=== PATIENT | female | born 1940 | race Caucasian/White ===

== ENCOUNTER 2022-12-21 11:44 | Outpatient (CLI) | payer MEDICARE, SELFPAY ==
[2022-12-21] MEDS: TETRACAINE 0.5% OPHTH 1 DROP EYE-RIGHT ×3 (11:55→12:44)
[2022-12-21] MEDS: BRIMONIDINE TARTRATE 0.2% OPHTH 1 DROP EYE-RIGHT ×2 (11:55→12:50)
[2022-12-21 11:57] VITALS: BP 126/75; PULSE 73; RESP 16; TEMP 36.2; O2SAT 96
--- NOTE | 2022-12-21 13:14 | W.PM.OPTPROC ---
Procedure Note Date of procedure: 12/21/22 Will [facility] bill your pro fee for this procedure?: Yes Procedure Description: SURGEON: Erin Bhakta MD PREOPERATIVE DIAGNOSIS: Posterior capsular opacity, right eye POSTOPERATIVE DIAGNOSIS: Posterior capsular opacity, right eye PROCEDURE: YAG laser capsulotomy, right eye ANESTHESIA: Topical. ESTIMATED BLOOD LOSS: None PATHOLOGY SPECIMEN: None COMPLICATIONS: None INDICATIONS: See consult note for details. The risks, benefits and alternatives of the procedure were explained to the patient, who elected to proceed and signed informed consent to do so. PROCEDURE: The patient was brought to the pre-holding area where the right eye was identified as the operative eye. I placed my initials above this eye. The patient received 2 sets of 1 drop of 0.5% tetracaine and 1 drop of 1% tropicamide. They also received 1 drop of 0.2% brimonidine. They received 1 drop of 0.5% tetracaine immediately prior to bringing them back for the procedure. The patient was then brought to the procedure room where the right eye was again identified as the operative eye. A YAG Walt capsulotomy lens was placed on the eye. The laser was administered using a total number of 13 shots with an energy of 2.4 mJ per shot for a total energy of 31 mJ. The patient tolerated the procedure well. DISPOSITION: The patient was taken back to the pre-holding area and given 1 drop of 0.2% brimonidine in the right eye. They were discharged to home in stable condition. The patient was instructed to call me or go to the emergency department with any sudden change, including dramatic loss of vision, severe pain in the eye or eyebrow region, nausea, or vomiting. The patient was instructed to use the 0.2% brimonidine 1 drop 2 times a day in the right eye for 1 week. The patient will follow up in the clinic in 1-2 weeks.
== END 2022-12-21 13:01 | disposition home or self-care (01) ==
LOC: EYE PRC 11:46
PROVIDERS: Visit Provider Ophthalmology
DX: H26.9 Unspecified cataract (principal)
CPT/HCPCS: 66821; A9270

== ENCOUNTER 2023-01-04 10:48 | Outpatient (CLI) | payer MEDICARE, SELFPAY ==
[2023-01-04 10:55] VITALS: BP 127/74; PULSE 70; RESP 16; O2SAT 97
[2023-01-04] MEDS: TETRACAINE 0.5% OPHTH 1 DROP EYE-LEFT ×3 (10:58→11:12)
[2023-01-04] MEDS: BRIMONIDINE TARTRATE 0.2% OPHTH 1 DROP EYE-LEFT ×2 (10:59→11:41)
--- NOTE | 2023-01-04 11:38 | W.PM.OPTPROC ---
Procedure Note Date of procedure: 01/04/23 Will [facility] bill your pro fee for this procedure?: Yes Procedure Description: SURGEON: Erin Bhakta MD PREOPERATIVE DIAGNOSIS: Posterior capsular opacity, left eye POSTOPERATIVE DIAGNOSIS: Posterior capsular opacity, left eye PROCEDURE: YAG laser capsulotomy, left eye ANESTHESIA: Topical. ESTIMATED BLOOD LOSS: None PATHOLOGY SPECIMEN: None COMPLICATIONS: None INDICATIONS: See consult note for details. The risks, benefits and alternatives of the procedure were explained to the patient, who elected to proceed and signed informed consent to do so. PROCEDURE: The patient was brought to the pre-holding area where the left eye was identified as the operative eye. I placed my initials above this eye. The patient received 2 sets of 1 drop of 0.5% tetracaine and 1 drop of 1% tropicamide. They also received 1 drop of 0.2% brimonidine. They received 1 drop of 0.5% tetracaine immediately prior to bringing them back for the procedure. The patient was then brought to the procedure room where the left eye was again identified as the operative eye. A YAG Walt capsulotomy lens was placed on the eye. The laser was administered using a total number of 22 shots with an energy of 2.4 mJ per shot for a total energy of 53 mJ. The patient tolerated the procedure well. DISPOSITION: The patient was taken back to the pre-holding area and given 1 drop of 0.2% brimonidine in the left eye. They were discharged to home in stable condition. The patient was instructed to call me or go to the emergency department with any sudden change, including dramatic loss of vision, severe pain in the eye or eyebrow region, nausea, or vomiting. The patient was instructed to use the 0.2% brimonidine 1 drop 2 times a day in the left eye for 1 week. The patient will follow up in the clinic in 1-2 weeks
== END 2023-01-04 11:41 | disposition home or self-care (01) ==
LOC: EYE PRC 10:48
PROVIDERS: Visit Provider Ophthalmology
DX: H26.9 Unspecified cataract (principal)
CPT/HCPCS: 66821; A9270

== ENCOUNTER 2025-01-17 11:24 | Outpatient (CLI) | payer MEDICARE, SELFPAY | END 2025-01-17 11:25 | disposition home or self-care (01) | LOC: AMB 01-22 18:05 | PROVIDERS: Visit Provider Internal Medicine | DX: R07.89 Other chest pain (principal) | CPT/HCPCS: A0425; A0427 ==

== ENCOUNTER 2025-01-17 12:05 | Emergency (ER) | payer MEDICARE, SELFPAY ==
--- OUTSIDE RECORDS SUMMARY | 2024-12-05 12:40 | XMS_ITS | Encounter Summary ---
Author Organization [facility] Address [address] [place] [address] Care Team Providers Care Public Health Nurse Name Role Phone Radha Ospina M.D. Primary Care Provider [phone] Reason for Visit * Reason Comments Immunizations Encounter Details Date Type Department Care Team (Latest Contact Info) Description 12/05/2024 1:40 PM CDT Clinical Support Department of Family Medicine, [facility], in [address] [phone] Melly Keane, RJaciN. [address] [place] [phone] Discharge Disposition: Home or Self Care Social History Tobacco Use Types Packs/Day Years Used Date Smoking Tobacco: Former Cigarettes 2 44.5 0 08/25/1956 - 03/13/2001 Passive Smoke Exposure: Past Smokeless Tobacco: Never Alcohol Use Standard Drinks/Week Comments Yes 5 (1 standard drink = 0.6 oz pur e alcohol) [facility] Utilities Answer Date Recorded In the past 12 months has e electric, gas, oil, or water company threatened to shut off services in your home? No 12/27/2023 Humiliation, Afraid, Rape, and Kick questionnair e Answer Date Recorded Within the last year, have y ou been afraid of your partner or ex-partner? No 08/12/2024 Within the last year, have y ou been humiliated or emotionally abused in other ways by your partner or ex-partner? No Within the last year, have y ou been kicked, hit, slapped, or otherwise physically hurt by your partner or ex-partner? No 08/12/2024 Within the last year, have y ou been raped or forced to have any kind of sexual activity by your partner or ex-partner? No 08/12/2024 Hunger Vital Sign Answer Date Recorded Within the past 12 months, y ou worried that your food would run out before you got the money to buy more. Never true 12/27/19 Within the past 12 months, t he food you bought just didn't last and you didn't have money to get more. Never true 12/27/2023 PRAPARE - Transportation Answer Date Re corded In the past 12 months, has l ack of transportation kept you from medical appointments or from getting medications? No 12/11 In the past 12 months, has l ack of transportation kept you from meetings, work, or from getting things needed for daily living? No 12/27/2023 Depression Answer Date Recor ded PHQ-9 Total Score (max 27) 0 10/16 Housing Stability Answer Date Recorded What is your living situation today? I have a [facility] place to live 12/27/2023 Education Answer Date Recorded What is the highest level of school you have completed or the highest degree you have received? Bachelor's degree (e.g., BA, AB, BS) 01/04/2019 Comments No Sex and Gender Information Value Date Recorded Sex Assigned at Female 11/03/2021 11:16 AM CDT Legal Sex Female 11:50 PM VIBRATOR EQUIPMENT TESTER Gender Identity Female 04/25/2020 8:38 AM VIBRATOR EQUIPMENT TESTER Sexual Orientation Straight 04/25/2020 8: 38 AM VIBRATOR EQUIPMENT TESTER documented as of this encounter Plan of Treatment Not on file documented as of this encounter Visit Diagnoses Not on filedocumented in this encounter Additional Health Concerns Assessment Noted Time PHQ-9 Depression Total Score: 0 10/17/19 25 1:28 PM CDT documented as of this encounter Care Teams Public Health Nurse Relationship Specialty Start Date End Date Radha Ospina M.D. [address] [place] [phone] PCP - General Family Medicine 11/26/07 documented as of this encounter
--- OUTSIDE RECORDS SUMMARY | 2024-12-10 14:30 | XMS_ITS | Encounter Summary ---
Author Organization [facility] Address [address] [place] [id number] Care Team Providers Care Waste And Batting Waste Chopper Name Role Phone Radha Ospina M.D. Primary Care Provider [phone] Encounter Details Date Type Department Care Team (Latest Contact Info) Description 12/10/2024 3:30 PM CDT Clinical Communication Virtual Review in [place], [place] [address] [place] [phone] Social History Tobacco Use Types Packs/Day Years Used Date Smoking Tobacco: Former Cigarettes 2 44.5 0 08/25/1956 - 03/13/2001 Passive Smoke Exposure: Past Smokeless Tobacco: Never Alcohol Use Standard Drinks/Week Comments Yes 5 (1 standard drink = 0.6 oz pur e alcohol) [facility] Utilities Answer Date Recorded In the [...] your living situation today? I have a [facility] place to live 12/27/2023 Education Answer Date Recorded What is the highest level of school you have completed or the highest degree you have received? Bachelor's degree (e.g., BA, AB, BS) 01/04/2019 Comments No Sex and Gender Information Value Date Recorded Sex Assigned at Female 11/03/2021 11:16 AM CDT Legal Sex Female 11:50 PM LIGHTING FIXTURE INSTALLER Gender Identity Female 04/25/2020 8:38 AM LIGHTING FIXTURE INSTALLER Sexual Orientation Straight 04/25/2020 8: 38 AM LIGHTING FIXTURE INSTALLER documented as of this encounter Plan of Treatment Not on file documented as of this encounter Visit Diagnoses Not on filedocumented in this encounter Additional Health Concerns Assessment Noted Time PHQ-9 Depression Total Score: 0 10/17/19 25 1:28 PM CDT documented as of this encounter Care Teams Waste And Batting Waste Chopper Relationship Specialty Start Date End Date Radha Ospina M.D. [address] [place] [phone] PCP - General Family Medicine 11/26/07 documented as of this encounter
--- OUTSIDE RECORDS SUMMARY | 2024-12-10 23:00 | XMS_ITS | Encounter Summary ---
Author Organization [facility] Address [address] [place] [address] Care Team Providers Care Alumnae Secretary Name Role Phone Radha Ospina M.D. Primary Care Provider [phone] Encounter Details Date Type Department Care Team (Late st Contact Info) Description 12/11/2024 Ancillary Procedure Department of Ophthalmology Social History Tobacco Use Types Packs/Day Years Used Date Smoking Tobacco: Former Cigarettes 2 44.5 0 08/25/1956 - 03/13/2001 Passive Smoke Exposure: Past Smokeless Tobacco: Never Alcohol Use Standard Drinks/Week Comments Yes 5 (1 standard drink = 0.6 oz pur e alcohol) [facility] Utilities Answer Date Recorded In the past 12 months has [employer], gas, oil, or water [employer] threatened to shut off services in your [...] money to buy more. Never true 12/27/19 24 Within the past 12 months, t he [...] your living situation today? I have a [facility] place to live 12/27/2023 Education Answer Date Recorded What is the highest level of school you have completed or the highest degree you have received? 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 Gender Identity Female 04/25/2020 8:38 AM SOLAR ENERGY TECHNICIAN Sexual Orientation Straight 04/25/2020 8: 38 AM SOLAR ENERGY TECHNICIAN documented as of this encounter Plan of Treatment Not on file documented as of this encounter Procedures Procedure Name Priority Date/Time Associated Diagnosis Comments OPHTHALMOLOGY IMAGE EXAM Routine 12/11/2024 12:00 AM CDT documented in this encounter Results * Eyes External-Ophthalmology Image Exam (12/11/2024 12:00 AM CDT) Narrative [facility] - 12/11/2024 5:35 PM CDT This order has been created and auto-finalized to support the import of images acquired without order. The clinical documentation to support these images can be found on the encounter that produced images. us Provider Not In System IMG NON RAD IMAGING PROCE DURES Final Result [facility] NA documented in this encounter Visit Diagnoses Not on filedocumented in this encounter Additional Health Concerns Assessment Noted Time PHQ-9 Depression Total Score: 0 10/17/19 25 1:28 PM CDT documented as of this encounter Care Teams Alumnae Secretary Relationship Specialty Start Date End Date Radha Ospina M.D. [address] [place] [phone] PCP - General Family Medicine 11/26/07 documented as of this encounter
--- OUTSIDE RECORDS SUMMARY | 2024-12-11 10:00 | XMS_ITS | Encounter Summary ---
Author Organization [facility] Address [address] [place] [address] Care Team Providers Care Renal Social Worker Name Role Phone Radha Ospina M.D. Primary Care Provider [phone] Reason for Referral * Outpatient (Routine) - Authorized Specialty Diagnoses / Procedures Referred By Joseline fry Referred To Contact Ophthalmology Elda [place] M.D. [address] [place] [address] Phone: tel: fax: [facility] Referral ID Status Reason Start Date Expiration Date V isits Requested Visits Authorized [id number] Authorized 12/11/2024 06/12/2026 1 1 Scheduling Instructions Please schedule a 6 month return visit to check for DARLEEN symptoms. Reason for Visit * Reason Comments optical migraines Headache * Appointment Request (Routine) - Closed Specialty Diagnoses / Procedures Referred By Joseline fry Referred To Contact Ophthalmology Diagnoses Migraine Headache Ophthalmic Retraction Eyelid Erin Bhakta M.D. [address] [address] Phone: tel: fax: Referral ID Status Reason Start Date Expiration Date Visits Re quested Visits Authorized [id number] Closed 07/24/2024 10/24/2025 1 1 Encounter Details Date Type Department Care Team (Latest Contact Info) Description 12/11/2024 11:00 AM CDT Comprehensive Visit Department of Ophthalmology in [place], [place] [address] [place] [address] Elda [place] M.D. [address] [place] [phone] Eyelid Retraction Left Upper Eyelid (Primary Dx) Social History Tobacco Use Types Packs/Day Years Used Date Smoking Tobacco: Former Cigarettes 2 44.5 0 08/25/1956 - 03/13/2001 Passive Smoke Exposure: Past Smokeless Tobacco: Never Alcohol Use Standard Drinks/Week Comments Yes 5 (1 standard drink = 0.6 oz pur e alcohol) [facility] Utilities Answer Date Recorded In the past 12 months has e [employer], gas, oil, or water [employer] threatened to shut off services in your [...] your living situation today? I have a [facility] place to live 12/27/2023 Education Answer Date Recorded What is the highest level of school you have completed or the highest degree you have received? Bachelor's degree (e.g., BA, AB, BS) 01/04/2019 Comments No Sex and Gender Information Value Date Recorded Sex Assigned at Female 11/03/2021 11:16 AM CDT Legal Sex Female 11:50 PM CERTIFIED ENERGY MANAGER Gender Identity Female 04/25/2020 8:38 AM CERTIFIED ENERGY MANAGER Sexual Orientation Straight 04/25/2020 8: 38 AM CERTIFIED ENERGY MANAGER documented as of this encounter Progress Notes * Elda [place] M.D. - 12/11/2024 11:00 AM CDT Yoselyn Riddle was seen today for possible thyroid eye disease evaluation. #1 Eyelid Retraction Left Upper Eyelid Mrs. Riddle is an 84-year-old female with a history of migraine headache with aura and pseudophakia referred from Dr. Bhakta at the [facility] for evaluation of possible thyroid eye disease. In July 2024 during a routine visit Dr. Bhakta noted possible upper eyelid retraction. She therefore referred the patient for baseline thyroid labs and a CT scan. The patient has never had symptoms of hyperthyroidism such as hot flashes or a racing heart, and she has never had issues with double vision. The TSH in 08/2024 was normal, and the CT scan obtained that month showed (per the radiologist'sreport) symmetrical thickening of the bilateral medial rectus and inferior rectus muscles. The patie nt was thus referred to us for evaluation of possible thyroid eye disease. On examination the patient has excellent visual acuity in both eyes with normal intra-ocular pressures and full color vision. Her pupils are equally round and reactive to light and accommodation withno afferent pupillary defect. She has full motility in both eyes. She does have significant bilateral upper eyelid dermatochalasis with hooding as well as prominent fat pads. Her MRD 1 is 5 on the right and 5.5 on the left, which is suggestive of very subtle eyelid retraction of the left upper eyelid. She also has mild lid lag on the left side. Abhishek exophthalmometry shows 2 mm of relative proptosis of the left eye. We reviewed the CT scan obtained in 08/2024 and feel that the medial rectus and inferior rectus muscle enlargement noted in the radiologist's report is subtle and may be normal. The slight left upper eyelid retraction may be a compensatory mechanism to her significant dermatochalasis with hooding. However when considered in the context of the mild lid lag and 2 mm of proptosis, it is not unreasonable to work the patient up for early thyroid eye disease. We will obtain TSI and TRAb levels today. We will see the patient back in 6 months and will also obtain TSI, TRAb, and TSH at that time. We emphasized to the patient that should she begin to have any symptoms of hyperthyroidism such as hot flashes or racing heart, she should inform her primary physician immediately. Regarding the dermatochalasis, this appears to be visually significant. She is considering having surgery with Dr. Bhakta. I do not see any contraindication to proceeding with surgery even as we follow along for possible developing thyroid eye disease. documented in this encounter Plan of Treatment Scheduled Orders Name Type Priority Associated Diagnoses Orde r Schedule Thyroid-Stimulating Immunoglobulin (TSI) Lab Routine Eyelid Retraction Left Upper Eyelid Expected: 06/11/2025, Expires: 03/13/2026 Thyrotropin Receptor Antibody Lab Routine Eyelid Retraction Left Upper Eyelid Expected: 06/11/2025 (Approximate), Expires: 03/13/2026 S-TSH (Thyroid-Stimulating Hormone - Sensitive) Lab Routine Eyelid Retraction Left Upper Eyelid Expected: 06/11/2025, Expires: 03/13/2026 Scheduled Referrals Name Type Priority Associated Diagnoses Order Schedule Ophthalmology office visit (clinic): Self; Oculoplastics Outpatient Referral Routine Expected: 06/11/2025, Expires: 03/13/2026 documented as of this encounter Results * Thyroid-Stimulating Immunoglobulin (TSI) (12/11/2024 11:57 AM CDT) Pathologist [facility] Thyroid-Stimula ting Immunoglob, S <1.0 <=1.3 TSI index 12/19/2024 6:25 PM CDT [facility] Blood (Blood, Venous) 12/11/2024 11:57 AM CDT 12/12/2024 8:23 AM CDT Elda [place] M.D. LAB BLOOD ADD-ON Final Result Performing Organization Address [facility] Co de Phone Number [facility] [address] [place] [address] [place] [phone] [place] [address] [place] [address] * Thyrotropin Receptor Antibody (12/11/2024 11:57 AM CDT) [facility] Thyrotropin Receptor Ab, S <1.10 0.00 - 1.75 IU/L 12/11/2024 7:13 PM CDT [facility] Comment: ----ADDITIONAL INFORMATION---- At a decision limit of 1.75 IU/L, this assay has 97% sensitivity and 99% specificity for detection of Graves' disease. In healthy individuals and in patients with thyroid disease without diagnosis of Graves' disease, the upper limit of anti-TSHR values are 1.22 IU/L and 1.58 IU/L, respectively (97.5th percentiles). Blood (Blood, Venous) 12/11/2024 11:57 AM CDT 12/11/2024 6:28 PM CDT Elda [place] M.D. LAB BLOOD ADD-ON Final Result Performing Organization Address [facility] Co de Phone Number [facility] [address] [place] [address] [facility] [address] [place] [address] documented in this encounter Visit Diagnoses Diagnosis Eyelid Retraction Left Upper Eyelid- Primary documented in this encounter Additional Health Concerns Assessment Noted Time PHQ-9 Depression Total Score: 0 10/17/19 25 1:28 PM CDT documented as of this encounter Care Teams Renal Social Worker Relationship Specialty Start Date End Date Radha Ospina M.D. [address] [place] [phone] PCP - General Family Medicine 11/26/07 documented as of this encounter
--- OUTSIDE RECORDS SUMMARY | 2024-12-11 10:49 | XMS_ITS | Encounter Summary ---
Author Organization [facility] Address [address] [place] [address] Care Team Providers Care Consumer Affairs Manager Name Role Phone Radha Ospina M.D. Primary Care Provider +1 [phone] Encounter Details Date Type Department Care Team (Late st Contact Info) Description 12/11/2024 11:49 AM CDT - 12/11/2024 11:59 PM CDT Hospital Encounter Department of Laboratory Medicine and Pathology, [facility], in [place], [place] [address] [place] [address] Elda Hawkins M.D. [address] [place] [phone] Eyelid Retraction Left Upper Eyelid Discharge Disposition: Home or Self Care Social History Tobacco Use Types Packs/Day Years Used Date Smoking Tobacco: Former Cigarettes 2 44.5 0 08/25/1956 - 03/13/2001 Passive Smoke Exposure: Past Smokeless Tobacco: Never Alcohol Use Standard Drinks/Week Comments Yes 5 (1 standard drink = 0.6 oz pur e alcohol) [facility] Utilities Answer Date Recorded In the past 12 months has [employer] electric, gas, oil, or water company threatened [...] your living situation today? I have a [facility] place to live 12/27/2023 Education Answer Date Recorded What is the highest level of school you have completed or the highest degree you have received? Bachelor's degree (e.g., BA, AB, BS) 01/04/2019 Comments No Sex and Gender Information Value Date Recorded Sex Assigned at Female 11/03/2021 11:16 AM CDT Legal Sex Female 11:50 PM BIT WELDER Gender Identity Female 04/25/2020 8:38 AM BIT WELDER Sexual Orientation Straight 04/25/2020 8: 38 AM BIT WELDER documented as of this encounter Medications at Time of Discharge acetaminophen (for_TYLENOL) 500 mg tablet Take 2 tablets by mouth every 6 (six) hours as needed. Pain 09/11/2012 amLODIPine (Norvasc) 5 mg tablet TAKE 1 TABLET(5 MG) BY MOUTH DAILY 90 tablet 3 11/20/2024 ascorbic acid, vitamin C, (VITAMIN C) 500 mg tablet Take 1 tablet by mouth daily. 09/24/[address] tablet Take 81 mg by mouth daily. cetirizine (ZyrTEC) 10 mg tablet Take 10 mg by mouth daily as needed for allergies. 10/03/2024 clobetasoL (Temovate) 0.05 % ointment Apply 1 Application topically 2 (two) times a day. Apply 1 application topically 2 (two) times a day. Use 3 times a week 30 g 11 01/02/2024 EPINEPHrine 0.3 mg/0.3 mL injection syringe as needed. 11/08/2022 fexofenadine HCl (PRISCILLA ALLERGY ORAL) Take 1 tablet by mouth daily. losartan (Cozaar) 100 mg tablet Take 1 tablet (100 mg total) by mouth daily. 30 tablet 11 10/16/2024 multivitamin tablet Take 1 tablet by mouth daily. 09/24/2012 rosuvastatin (Crestor) 5 mg tablet TAKE 1 TABLET(5 MG) BY MOUTH DAILY 90 tablet 3 10/11/2024 hydroCHLOROthiaz almaz (HydroDiuril) 25 mg tablet TAKE 1/2 TABLET(12.5 MG) BY MOUTH DAILY 45 tablet 3 01/08/2024 5 documented as of this encounter Plan of Treatment Not on file documented as of this encounter Procedures Procedure Name Priority Date/Time Associated Diagnosis Comments THYROID-STIMULATING IMMUNOGLOBULIN (TSI), S Routine 12/11/2024 11:57 AM CDT Eyelid Retraction Left Upper Eyelid THYROTROPIN RECEPTOR AB, S Routine 12/11/2024 11:57 AM CDT Eyelid Retraction Left Upper Eyelid documented in this encounter Results * Thyroid-Stimulating Immunoglobulin (TSI) (12/11/2024 11:57 AM CDT) Thyroid-Stimula ting Immunoglob, S <1.0 <=1.3 TSI index 12/19/2024 6:25 PM CDT [facility] Blood (Blood, Venous) 12/11/2024 11:57 AM CDT 12/12/2024 8:23 AM CDT Elda Hawkins M.D. LAB BLOOD ADD-ON Final Result Performing Organization Address [facility] de Phone Number [facility] [address] [place] [address] [place] [id number] [place] [address] [place] [address] * Thyrotropin Receptor Antibody (12/11/2024 11:57 AM CDT) Thyrotropin Receptor Ab, S <1.10 0.00 - 1.75 IU/L 12/11/2024 7:13 PM CDT [facility] Comment: ----ADDITIONAL INFORMATION---- At a decision limit [...] BLOOD ADD-ON Final Result Performing Organization Address [facility] de Phone Number [facility] [address] [place] [address] [facility] [address] [place] [address] documented in this encounter Visit Diagnoses Diagnosis Eyelid Retraction Left Upper Eyelid documented in this encounter Additional Health Concerns Assessment Noted Time PHQ-9 Depression Total Score: 0 10/17/19 25 1:28 PM CDT documented as of this encounter Care Teams Consumer Affairs Manager Relationship Specialty Start Date End Date Radha Ospina M.D. [address] [place] [address] PCP - General Family Medicine 11/26/07 documented as of this encounter
--- OUTSIDE RECORDS SUMMARY | 2025-01-02 09:45 | XMS_ITS | Encounter Summary ---
Author Organization [facility] Address [address] [place] [address] Care Team Providers Care Profiling Machine Set Up Operator Name Role Phone Radha Ospina M.D. Primary Care Provider [phone] [phone] Reason for Referral * Cardiovascular-Diagnostic (Routine) - Authorized Specialty Diagnoses / Procedures Referred By Joseline fry Referred To Contact Diagnoses Spells Undifferentiated Procedures ECG Heart rhythm monitor (Holter) Radha Ospina M.D. [address] [place] [address] Phone: tel: fax: [facility] Region Referral ID Status Reason Start Date Expiration Date V isits Requested Visits Authorized [id number] Authorized 12/25/2024 03/27/2026 1 1 Reason for Visit * Cardiovascular-Diagnostic (Routine) - Authorized Specialty Diagnoses / Procedures Referred By Joseline fry Referred To Contact Diagnoses Spells Undifferentiated Procedures ECG Heart rhythm monitor (Holter) Radha Ospina M.D. [address] [place] [address] Phone: tel: fax: [facility] Region Referral ID Status Reason Start Date Expiration Date V isits Requested Visits Authorized [id number] Authorized 12/25/2024 03/27/2026 1 1 Encounter Details Date Type Department Care Team (Latest Contact Info) Description 01/02/2025 10:45 AM CDT - 01/02/2025 11:59 PM CDT Hospital Encounter Department of Cardiovascular Diseases in [place], [place] [address] [place] [address] Radha Ospina M.D. [address] [place] [address] Maverickllmarilyn Undifferentiated Discharge Disposition: Home or Self Care Social History Tobacco Use Types Packs/Day Years Used Date Smoking Tobacco: Former Cigarettes 2 44.5 0 08/25/1956 - 03/13/2001 Passive Smoke Exposure: Past Smokeless Tobacco: Never Alcohol Use Standard Drinks/Week Comments Yes 5 (1 standard drink = 0.6 oz pur e alcohol) [facility] Utilities Answer Date Recorded In the [...] your living situation today? I have a [facility] place to live 12/27/2023 Education Answer Date Recorded What is the highest level of school you have completed or the highest degree you have received? Bachelor's degree (e.g., BA, AB, BS) 01/04/2019 Comments No Sex and Gender Information Value Date Recorded Sex Assigned at Female 11/03/2021 11:16 AM CDT Legal Sex Female 11:50 PM DIGITAL SERVICE ENGINEER Gender Identity Female 04/25/2020 8:38 AM DIGITAL SERVICE ENGINEER Sexual Orientation Straight 04/25/2020 8: 38 AM DIGITAL SERVICE ENGINEER documented as of this encounter Medications at [...] Procedure Name Priority Date/Time Associated Diagnosis Comments ECG HEART RHYTHM MONITOR (HOLTER) Routine 01/02/2025 10:48 AM CDT Spells Undifferentiated documented in this encounter Results * ECG Heart rhythm monitor (Holter) (01/02/2025 10:48 AM CDT) Min Heart Rate 52 bpm INFOB IONIC MOME Max Heart Rate 97 bpm INFOB IONIC MOME Mean Heart Rate 64 bpm INFOBIONIC MOME VE Total Beats 40 count INFOB IONIC MOME VE Percent Beats less than 1 percent INFOBIONIC MOME SVE Total Beats 2938 count INFOBIONIC MOME SVE Percent Beats 4 percent INFOBIONIC MOME AF Count 0 count INFOBIONIC MOME AF Duration 0 duration INFOBION IC MOME AF [place] 0 percent INFOBIONIC MOME Symptom Count 0 count INFOBI ONIC MOME 01/02/2025 10:4 8 AM CDT Narrative INFOBIONIC MOME - 01/06/2025 7:32 AM CDT [place] 1. The basic rhythm was sinus with a left bundle branch block. Varying ventricular conduction was seen. The total analyzed time was 18h 3m. The heart rate varied from 52 to 97 bpm. The average HR was 64 bpm. 2. Premature ventricular complexes were noted singly and in a pair. There were 40 PVCs recorded with a PVC burden of less than 1%. 3. Premature supraventricular complexes were noted singly, aberrantly, in bigeminy, in trigeminy, in pairs (at times with aberrancy), and in nine 3 to 11 beat atrial runs (at times with aberrancy) with a maximum rate of 157 bpm. There were 2,938 PACs recorded with a PAC burden of 4%. 4. No patient triggered events were noted. Retail Business Manager: JAMES Durán A Holter monitor with cascade to extended monitoring was ordered for the indication of Undifferentiated syncope/spells. During the Holter monitoring period, the patient did not report syncope with associated rhythm abnormality (pause >=3 seconds, bradycardia <=30bpm for at least 30 seconds, sustained VT >=110bpm or SVT >=140bpm for >=30 beats). Therefore, the study was cascaded to extended monitoring. Procedure Note Juan Luis Jewell M.D. - 01/06/2025 [place] 1. The basic rhythm was sinus with a left bundle branch block. Varyingventricular conduction was seen. The total analyzed time was 18h 3m. Theheart rate varied from 52 to 97 bpm. The average HR was 64 bpm. 2. Premature ventricular complexes were noted singly and in a pair. Therewere 40 PVCs recorded with a PVC burden of less than 1%. 3. Premature supraventricular complexes were noted singly, aberrantly, inbigeminy, in trigeminy, in pairs (at times with aberrancy), and in nine 3to 11 beat atrial runs (at times with aberrancy) with a maximum rate of157 bpm. There were 2,938 PACs recorded with a PAC burden of 4%. 4. No patient triggered events were noted. Retail Business Manager: JAMES Durán A Holter monitor with cascade to extended monitoring was ordered for theindication of Undifferentiated syncope/spells. During the Holtermonitoring period, the patient did not report syncope with associatedrhythm abnormality (pause >=3 seconds, bradycardia <=30bpm for at least 30 seconds, sustained VT >=110bpm or SVT>=140bpm for >=30 beats). Therefore, the study was cascaded to extended monitoring. Radha Ospina M.D. CV [facility] Final Result SANDI MARTÍNEZ documented in this encounter Visit Diagnoses Diagnosis Spells Undifferentiated documented in this encounter Additional Health Concerns Assessment Noted Time PHQ-9 Depression Total Score: 0 10/17/19 25 1:28 PM CDT documented as of this encounter Care Teams Profiling Machine Set Up Operator Relationship Specialty Start Date End Date Radha Ospina M.D. [address] [place] [address] PCP - General Family Medicine 11/26/07 documented as of this encounter
--- OUTSIDE RECORDS SUMMARY | 2025-01-06 07:55 | XMS_ITS | Encounter Summary ---
Author Organization [facility] Address [address] [place] [address] Care Team Providers Care Sheet Tailer Name Role Phone Radha Ospina M.D. Primary Care Provider [phone] [phone] Reason for Referral * Cardiovascular-Diagnostic (Routine) - Closed Specialty Diagnoses / Procedures Referred By Joseline fry Referred To Contact Diagnoses Dizziness And Giddiness Other General Symptoms And Signs Procedures ECG Ambulatory Real Time Cardiac Monitoring KS REMOTE 30 DAY ECG PHYS REV KS REMOTE 30 DAY ECG TECH SUPP Radha Ospina M.D. [address] [place] [address] Phone: tel: fax: [facility] Referral ID Status Reason Start Date Expiration Date Visits Re quested Visits Authorized [id number] Closed 01/06/2025 04/08/2026 1 1 Reason for Visit * Cardiovascular-Diagnostic (Routine) - Closed Specialty Diagnoses / Procedures Referred By Joseline fry Referred To Contact Diagnoses Dizziness And Giddiness Other General Symptoms And Signs Procedures ECG Ambulatory Real Time Cardiac Monitoring KS REMOTE 30 DAY ECG PHYS REV KS REMOTE 30 DAY ECG TECH SUPP Radha Ospina M.D. [address] [place] [address] Phone: tel: fax: [facility] Region Referral ID Status Reason Start Date Expiration Date Visits Re quested Visits Authorized [id number] Closed 01/06/2025 04/08/2026 1 1 Encounter Details Date Type Department Care Team (Latest Contact Info) Description 01/06/2025 8:55 AM CDT - 01/06/2025 11:59 PM CDT Hospital Encounter Division of Cardiovascular Diseases in [place], [place] [address], [place] [address] Radha Ospina M.D. [address] [place] [address] Dizziness And Giddiness; Other General Symptoms And Signs Discharge Disposition: Home or Self Care Social History Tobacco Use Types Packs/Day Years Used Date Smoking Tobacco: Former Cigarettes 2 44.5 0 08/25/1956 - 03/13/2001 Passive Smoke Exposure: Past Smokeless Tobacco: Never Alcohol Use Standard Drinks/Week Comments Yes 5 (1 standard drink = 0.6 oz pur e alcohol) [facility] Utilities Answer Date Recorded In the past 12 months has e [employer], gas, oil, or water [facility] threatened to shut off services in your [...] your living situation today? I have a [facility] place to live 12/27/2023 Education Answer Date Recorded What is the highest level of school you have completed or the highest degree you have received? Bachelor's degree (e.g., BA, AB, BS) 01/04/2019 Comments No Sex and Gender Information Value Date Recorded Sex Assigned at Female 11/03/2021 11:16 AM CDT Legal Sex Female 11:50 PM ENVIRONMENTAL RESTORATION PLANNER Gender Identity Female 04/25/2020 8:38 AM ENVIRONMENTAL RESTORATION PLANNER Sexual Orientation Straight 04/25/2020 8: 38 AM ENVIRONMENTAL RESTORATION PLANNER documented as of this encounter Medications at [...] BY MOUTH DAILY 45 tablet 3 01/08/2024 documented as of this encounter Plan of Treatment Pending Results Name Type Priority Associated Diagnoses Date /Time ECG Ambulatory Real Time Cardiac Monitoring Cardiac Services Routine Dizziness And Giddiness Other General Symptoms And Signs 01/06/2025 9:23 AM CDT documented as of this encounter Procedures Procedure Name Priority Date/Time Associated Diagnosis Comments ECG AMBULATORY REAL TIME CARDIAC MONITORING Routine 01/06/2025 9:23 AM CDT Dizziness And Giddiness Other General Symptoms And Signs documented in this encounter Visit Diagnoses Diagnosis Dizziness And Giddiness Other General Symptoms And Signs documented in this encounter Additional Health Concerns Assessment Noted Time PHQ-9 Depression Total Score: 0 10/17/19 25 1:28 PM CDT documented as of this encounter Care Teams Sheet Tailer Relationship Specialty Start Date End Date Radha Ospina M.D. [address] [place] [address] PCP - General Family Medicine 11/26/07 documented as of this encounter
[2025-01-17] VITALS (20 sets, daily range): BP systolic 120–159; BP diastolic 67–77; PULSE 60–71; RESP 7–54; TEMP 36.6; O2SAT 94–99; BMI 28.1
--- OUTSIDE RECORDS SUMMARY | 2025-01-17 12:08 | XMS_ITS | Encounter Summary ---
Author Organization [facility] Address [address] [place] [address] Care Team Providers Care Case Manager Specialist Name Role Phone Radha Ospina M.D. Primary Care Provider [phone] [phone] Encounter Details Date Type Department Care Team (Late st Contact Info) Description 12/11/2024 Episode Changes Department of Ophthalmology in [place], [place] [address] [place] [address] Brigitte Soliz Social History Tobacco Use Types Packs/Day Years Used Date Smoking Tobacco: Former Cigarettes 2 44.5 0 08/25/1956 - 03/13/2001 Passive Smoke Exposure: Past Smokeless Tobacco: Never Alcohol Use Standard Drinks/Week Comments Yes 5 (1 standard drink = 0.6 oz pur e alcohol) [facility] Utilities Answer Date Recorded In the [...] living situation today? I have a [facility] place to live 12/27/2023 Education Answer Date Recorded What is the highest level of school you have completed or the highest degree you have received? Bachelor's degree (e.g., BA, AB, BS) 01/04/2019 Comments No Sex and Gender Information Value Date Recorded Sex Assigned at Female 11/03/2021 11:16 AM CDT Legal Sex Female 11:50 PM MICROBIOLOGY LABORATORY MANAGER Gender Identity Female 04/25/2020 8:38 AM MICROBIOLOGY LABORATORY MANAGER Sexual Orientation Straight 04/25/2020 8: 38 AM MICROBIOLOGY LABORATORY MANAGER documented as of this encounter Plan of Treatment Not on file documented as of this encounter Visit Diagnoses Not on filedocumented in this encounter Additional Health Concerns Assessment Noted Time PHQ-9 Depression Total Score: 0 10/17/19 1:28 PM CDT documented as of this encounter Care Teams Case Manager Specialist Relationship Specialty Start Date End Date Radha Ospina M.D. [address] [place] [phone] PCP - General Family Medicine 11/26/07 documented as of this encounter
--- OUTSIDE RECORDS SUMMARY | 2025-01-17 12:08 | XMS_ITS | Encounter Summary ---
Author Organization [facility] Address [address] [place] [address] Care Team Providers Care Business Systems Developer Name Role Phone Radha Ospina M.D. Primary Care Provider [phone] [phone] Encounter Details Date Type Department Care Team (Latest Contact Info) Description 10/18/2024 Results Follow-Up Department of Family Medicine, [address] [phone] Maurisio Matt M.D. [address] [place] [phone] DX Chest AP or PA and Lateral 2 Views Social History Tobacco Use Types Packs/Day Years Used Date Smoking Tobacco: Former Cigarettes 2 44.5 0 08/25/1956 - 03/13/2001 Passive Smoke Exposure: Past Smokeless Tobacco: Never Alcohol Use Standard Drinks/Week Comments Yes 5 (1 standard drink = 0.6 oz pur e alcohol) [facility] Utilities Answer Date Recorded In [...] your living situation today? I have a [facility] place to live 12/27/2023 Education Answer Date Recorded What is the highest level of school you have completed or the highest degree you have received? Bachelor's degree (e.g., BA, AB, BS) 01/04/2019 Comments No Sex and Gender Information Value Date Recorded Sex Assigned at Female 11/03/2021 11:16 AM CDT Legal Sex Female 11:50 PM SUPERVISOR HARD CANDY Gender Identity Female 04/25/2020 8:38 AM SUPERVISOR HARD CANDY Sexual Orientation Straight 04/25/2020 8: 38 AM SUPERVISOR HARD CANDY documented as of this encounter Miscellaneous Notes * Telephone Encounter - Renetta Zhou R.N. - 12/03/2024 3:52 PM CDT Information Discussed Khadra was called and the following message from Dr. Ospina was read: If the cough has not resolved we could order lung function testing and refer you to a lung specialist. If you would like to proceed with that course of action please let me know. Pt reported that her coughing is not as often as it was. She thinks that the Flonase really helped. Pt also shared she hasn't had a episode they talked about, the fluttering since she had talked with Dr. Ospina. She' sonly had 2 in the last 3-4 months. Pt said she was doing ok and didn't think she wanted to complete the lung function testing at this time. Pt was told to reach back out if her cough became worse or she noticed it more often. Pt verbalized understanding. PLAN Disposition/Recommendation: recommended continue engagement in self-management activities Information/Education: patient/caller able to teach back Caller agreeable to plan of care: yes The following references were used: provider Dr. Ospina documented in this encounter Plan of Treatment Not on file documented as of this encounter Visit Diagnoses Not on filedocumented in this encounter Additional Health Concerns Assessment Noted Time PHQ-9 Depression Total Score: 0 10/17/19 25 1:28 PM CDT documented as of this encounter Care Teams Business Systems Developer Relationship Specialty Start Date End Date Radha Ospina M.D. [address] [place] [phone] PCP - General Family Medicine 11/26/07 documented as of this encounter
--- OUTSIDE RECORDS SUMMARY | 2025-01-17 12:08 | XMS_ITS | Encounter Summary ---
Author Organization [facility] Address [address] [place] [address] Care Team Providers Care Stonemason Helper Name Role Phone Radha Ospina M.D. Primary Care Provider [phone] [phone] Encounter Details Date Type Department Care Team (Late st Contact Info) Description 01/06/2025 Results Follow-Up Department of Family Medicine, [address] [phone] Radha Ospina M.D. [address] [place] [address] ECG Heart rhythm monitor (Holter) Social History Tobacco Use Types Packs/Day Years Used Date Smoking Tobacco: Former Cigarettes 2 44.5 0 08/25/1956 - 03/13/2001 Passive Smoke Exposure: Past Smokeless Tobacco: Never Alcohol Use Standard Drinks/Week Comments Yes 5 (1 standard drink = 0.6 oz pur e alcohol) [facility] Utilities Answer Date Recorded In the [...] your living situation today? I have a [facility] place to live 12/27/2023 Education Answer Date Recorded What is the highest level of school you have completed or the highest degree you have received? Bachelor's degree (e.g., BA, AB, BS) 01/04/2019 Comments No Sex and Gender Information Value Date Recorded Sex Assigned at Female 11/03/2021 11:16 AM CDT Legal Sex Female 11:50 PM MECHANICS SUPERVISOR Gender Identity Female 04/25/2020 8:38 AM MECHANICS SUPERVISOR Sexual Orientation Straight 04/25/2020 8: 38 AM MECHANICS SUPERVISOR documented as of this encounter Plan of Treatment Not on file documented as of this encounter Visit Diagnoses Not on filedocumented in this encounter Additional Health Concerns Assessment Noted Time PHQ-9 Depression Total Score: 0 10/17/19 25 1:28 PM CDT documented as of this encounter Care Teams Stonemason Helper Relationship Specialty Start Date End Date Radha Ospina M.D. [address] [place] [phone] PCP - General Family Medicine 11/26/07 documented as of this encounter
--- OUTSIDE RECORDS SUMMARY | 2025-01-17 12:08 | XMS_ITS | Clinical Summary ---
Author Organization [facility] Address [address] [place] [address] Care Team Providers Care Machine Sewer Name Role Phone Radha Ospina M.D. Primary Care Provider [phone] Source Comments Patient records contain information from all sites at [facility]. For routine questions regarding patient records, call [phone] during business hours, M-F 8:00 AM - 5:00 PM Central Time. Record requests for emergency care only can be directed to [phone] at any time.[facility] Allergies Active Allergy Reactions Criticality Noted Date Comments Atorvastatin Myalgia 04/23/2009 Bee Venom Protein (Honey Bee) Anaphylaxis 08/06/2008 Cat Dander Other (see comments) 01/25/2019 Eye irratation Lovastatin Other (see comments) 03/22/2002 Collagenous colitis Mold Other (see comments) 01/25/2019 Eye irratation Medications * This document contains information received from the source organization and may not represent a complete record from that organization. acetaminophen (for_TYLENOL) 500 mg tablet Take 2 tablets by mouth every 6 (six) hours as needed. Pain 09/12/19 13 Active multivitamin tablet Take 1 tablet by mouth daily. 09/25/19 13 Active ascorbic acid, vitamin C, (VITAMIN C) 500 mg tablet Take 1 tablet by mouth daily. 09/25/19 [address] tablet Take 81 mg by mouth daily. Active fexofenadine HCl (PRISCILLA ALLERGY ORAL) Take 1 tablet by mouth daily. Active EPINEPHrine 0.3 mg/0.3 mL injection syringe as needed. 11/09/19 23 Active clobetasoL (Temovate) 0.05 % ointment Apply 1 Application topically 2 (two) times a day. Apply 1 application topically 2 (two) times a day. Use 3 times a week 30 g 11 01/02/20 24 Active rosuvastatin (Crestor) 5 mg tablet TAKE 1 TABLET(5 MG) BY MOUTH DAILY 90 tablet 3 10/12/19 25 Active cetirizine (ZyrTEC) 10 mg tablet Take 10 mg by mouth daily as needed for allergies. 10/04/19 25 Active losartan (Cozaar) 100 mg tablet Take 1 tablet (100 mg total) by mouth daily. 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 random Bx: collagenous colitis 07/23: 5 mm adenomatous polyp with low grade dysplasia. 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 Recommended repeat MRI scan in 2 years January 2019: per neurosurg: repeat mri and neurosurg visit in 4 years 08/03: stable. Repeat NS and imaging in 4 years Assessment & Plan (10/16/2024 1:51 PM CDT): She will follow up with Neurosurgery in three years Assessment & Plan (01/25/2019 2:53 PM OXYACETYLENE TORCH OPERATOR): 01/25/19 Patient 6 years from a near-total resection. MRI scan reviewed and reveals no evidence of change in the small residual amount of tumor along the right facial nerve. Patient reports no issues with imbalance or tinnitus. Continued difficulty with eye blurriness. Stable right sided tongue numbness Plan: Repeat MRI scan in follow-up in Neurosurgery in 4 years -Patient should have eye evaluation which I have requested. Loss Hearing Sensorineural Unilateral 07/26/2012 Chronic Kidney Disease Stage 3 Glomerular Filtration Rate 30 To 59 11/07/2011 Lichen Sclerosus 08/29/2011 Overview (01/24/2023): Evaluated by derm 12/2022 Hypercalcemia 08/03/2011 Colitis Collagenous 08/15/2007 Vitiligo 08/18/2006 Hypertensive Chronic Kidney Disease With Stage 1 Through Stage 4 Chronic Kidney Disease, Or Unspecified Chronic Kidney Disease 03/27/2003 Overview (08/12/2024): July 2024: home monitor checked and found to be accurate (checked during spouses visit so documentation is in spouses chart) Assessment & Plan (10/16/2024 1:51 PM CDT): Well-controlled. However we will try stopping lisinopril and switching to losartan to see if that has helpful. Recent BMP shows stable creatinine. I have asked her to monitor her blood pressure once she switch to losartan and if it is over 140 and/or 90 to reach out Hyperlipidemia 03/27/2003 Resolved Problems Problem Noted Date Diagnosed Date Resolved Date Nevi Multiple 12/14/2022 10/16/2024 Keratosis Seborrheic 12/14/2022 024 Dermatoheliosis 12/14/2022 01/29/2024 Cyst Ganglion 03/27/2003 01/29/2024 Encounters * This document contains information received from the source organization and may not represent a complete record from that organization. Date Type Department Care Team Description 01/08/2025 Refill Department of Family Medicine, [address] [phone] Main Davies M.D. Med Refill 01/06/2025 8:55 AM CDT - 01/06/2025 11:59 PM CDT Hospital Encounter Division of Cardiovascular Diseases in [address] [phone] Radha Ospina M.D. Dizziness And Giddiness; Other General Symptoms And Signs Discharge Disposition: Home or Self Care 01/06/2025 Results Follow-Up Department of Family Medicine, [address] [place] [address] [place] [address] Radha Ospina M.D. ECG Heart rhythm monitor (Holter) 01/02/2025 10:45 AM CDT - 01/02/2025 11:59 PM CDT Hospital Encounter Department of Cardiovascular Diseases in [place], [place] [address] [place] [address] Radha Ospina M.D. Spells Undifferentiated Discharge Disposition: Home or Self Care 12/30/2024 Results Follow-Up Department of Ophthalmology in [place], [place] [address] [place] [phone] Elda Hawkins M.D. Thyrotropin Receptor Antibody, Thyroid-Stimulating Immunoglobulin (TSI) 12/25/2024 Clinical Communication Department of Family Medicine, [address] [phone] Radha Ospina M.D. Order Request 12/11/2024 11:49 AM CDT - 12/11/2024 11:59 PM CDT Hospital Encounter Department of Laboratory Medicine and Pathology, [facility], in [place], [place] [address] [place] [phone] Elda Hawkins M.D. Eyelid Retraction Left Upper Eyelid Discharge Disposition: Home or Self Care 12/11/2024 11:00 AM CDT Comprehensive Visit Department of Ophthalmology in [place], [place] [address] [place] [phone] Elda Hawkins M.D. Eyelid Retraction Left Upper Eyelid (Primary Dx) 12/11/2024 Ancillary Procedure Department of Ophthalmology 12/11/2024 Episode Changes Department of Ophthalmology in [place], [place] [address] [place] [phone] Brigitte Soliz 12/10/2024 3:30 PM CDT Clinical Communication Virtual Review in [place], [place] [address] [place] [address] 12/05/2024 1:40 PM CDT Clinical Support Department of Family Medicine, [facility], in [address] [phone] Melly Keane, RJaciNJaci Discharge Disposition: Home or Self Care 11/20/2024 Refill Department of Family Medicine, [address] [place] [address] Main Davies M.D. Med Refill 10/18/2024 11:14 AM CDT - 10/18/2024 11:59 PM CDT Hospital Encounter Department of Radiology in [address] [phone] Radha Ospina M.D. Chronic Cough Discharge Disposition: Home or Self Care 10/18/2024 Results Follow-Up Department of Family Medicine, [address] [place] [address] Maurisio Matt M.D. DX Chest AP or PA and Lateral 2 Views 10/18/2024 [place], [place] [address] [place] [phone] Provider, Historical 10/17/2024 Clinical Communication Department of Family Medicine, [address] [place] [address] Radha Ospina M.D. After Visit Question 10/17/2024 Refill Department of Family Medicine, [address] [place] [address] Radha Ospina M.D. Med Refill from Last 3 Months Immunizations Immunization Administration Dates Next Due HZV (ZOSTAVAX) 08/02/2007 Influenza high dose QV(65 ye ars or older) (PF) 01/13/2023,01/04/2022,01/11/2021,2019 PCV13 12/13/2016 PPSV23 08/02/2007,12/20/2000 RZV (SHINGRIX) 01/24/2023(Deferred: Patient zion connors) SARS-COV-2 (COVID-19) - MODE RNA (12 YEARS AND OLDER) Fall Seasonal 12/05/2024,01/08/2024,01/13/2023 SARS-COV-2 (COVID-19) - PFIZ ER (Discontinued)(12 years or older) 12/23/2020,05/21/2020,04/30/2020 SARS-COV-2 (COVID-19) - PFIZ ER BIVALENT TS(Discontinued)(12 YEARS OR OLDER) 01/04/2022 SARS-COV-2 (COVID-19) - PFIZ ER TS(Discontinued)(12 years or older) 08/25/2021 Td (Adult), adsorbed 04/30/2004 Tdap 11/03/2022,11/15/2012 influenza trivalent high dos e (HD)(PF) 12/05/2024,01/08/2024,12/31/2018,2017 Family History Medical History Relation Name Comments Asthma Brother Gareth Wallace Jr Alcohol abuse Father Gareth Rodrigo Cataracts Father Gareth Rodrigo Coronary artery disease Father Gareth Wallace Stroke Maternal Grandmother Bhumika Patel Asthma Mother Kati Wallace Dementia Mother Kati Wallace Blindness Neg Hx Glaucoma Neg Hx Macular degeneration Neg Hx Vision loss Neg Hx Relation Name Status Comments Brother Gareth RodrigoJr luis e Alive Father Gareth Wallace Alive Maternal Grandmother Bhumika Patel Alive Mother Kati Wallace Alive Social History Tobacco Use Types Packs/Day Years Used Date Smoking Tobacco: Former Cigarettes 2 44.5 0 08/25/1956 - 03/13/2001 Passive Smoke Exposure: Past Smokeless Tobacco: Never Alcohol Use Standard Drinks/Week Comments Yes 5 (1 standard drink = 0.6 oz pur e alcohol) [facility] Utilities Answer Date Recorded In the past 12 months has [facility] [employer], gas, oil, or water [employer] threatened to shut off services in your [...] living situation today? I have a [facility] place to live 12/27/2023 Education Answer Date Recorded What is the highest level of school you have completed or the highest degree you have received? Bachelor's degree (e.g., BA, AB, BS) 01/04/2019 Comments No Sex and Gender Information Value Date Recorded Sex Assigned at Female 11/03/2021 11:16 AM CDT Legal Sex Female 11:50 PM OXYACETYLENE TORCH OPERATOR Gender Identity Female 04/25/2020 8:38 AM OXYACETYLENE TORCH OPERATOR Sexual Orientation Straight 04/25/2020 8: 38 AM OXYACETYLENE TORCH OPERATOR Last Filed Vital Signs Vital Sign Reading Time Taken Comments Blood Pressure 137/73 10/16/2024 12:49 PM CDT Pulse 60 10/16/2024 12:49 PM CDT Temperature 36.8 C (98.2 F) 01/12/2022 10:05 AM CDT Respiratory Rate 18 01/20/2022 8:13 AM OXYACETYLENE TORCH OPERATOR Oxygen Saturation 92% 01/12/2022 10: 55 AM CDT Inhaled Oxygen Concentration - - Weight 83.4 kg (183 lb 13.8 oz) 025 12:49 PM CDT Height 172 cm (5' 7.72) 08/12/2024 2:05 PM CDT Body Mass Index 28.19 08/12/2024 2:05 PM CDT Plan of Treatment Health Maintenance Due Date Last Done Comments Zoster Vaccines (2 of 3) 09/27/2007 08/02/2007 RSV vaccine - (32-36 weeks) or 50+ years (1 - 1-dose 75+ series) 2017 COVID-19 Vaccine (2024- season) 2025 12/05/2024, 01/08/2024, 01/13/2023, Additional history exists Visit: Medicare Annual Wellness 08/13/2025 08/12/2024 Creatinine Level (Kidney Function Test) 08/20/2025 08/20/2024, 10/27/2023, 10/03/2022, Additional history exists Potassium Level 08/20/2025 08/20/2024, 10/11, 10/03/2022, Additional history exists Sodium Level 08/20/2025 08/20/2024, 10/11, 10/03/2022, Additional history exists Office Visit for Blood Pressure Check / Re-check 10/16/2025 10/16/2024 Visit: Chronic Disease, age 18+ 10/16/2025 10/16/2024 DTaP,Tdap,and Td Vaccines (3 - Td or Tdap) 11/03/2032 11/03/2022, 11/15/2012, 04/30/2004 Colonoscopy Discontinued 07/18/2012, 07/13, 12/01/2003 Colorectal Cancer Surveillance Discontinued Pneumococcal vaccine (50+ years) Completed 12/13/2016, 08/02/2007, 12/20/2000 Fall Risk Screen (Annual) Completed 08/12/2024 Depression Screening (Annual PHQ-2) Completed 10/16/2024, 08/12/2024 Influenza Vaccine Completed 12/05/2024, , 01/13/2023, Additional history exists CT Colonography Discontinued Cologuard Discontinued IPV Vaccines Aged Out No longer eligi ble based on patient's age to complete this topic Medical Devices Implanted Type Area Sales Representative [facility] Device Identifier Shelf Expiration Date Model / Serial / Lot Sonicweld Bone Pin Resorbx 2.1x4mm - [place] [id number] Implanted:Qty: 2 on 09/03/2012 Hardware e.g. pins/screws/ rods NEGARS Pedro Description:Device Manufactu rer - MARIA DEL CARMEN Vasquez. Device Status Text - [id number]. Sonicweld Mesh Resorbx 50x50m .6mm - [place] [id number] Implanted:Qty: 1 on 09/03/2012 Hardware e.g. pins/screws/ rods NEGARS Pedro Description:Device Manufactu rer - MARIA DEL CARMEN Vasquez. Device Status Text - [id number]. Lens Tcn Mnfcl Dcb00 +20.5d - [id number] - [id number] Implanted:Qty: 1 on 12/27/2021 by Esvin Diaz M.D. at [facility] Ocular Lens Right: Eye [employer] (Previously KAREN) 11/07/2024 [id number] / [id number] / Lens Tcn Mnfcl Dcb00 +19.5d - [id number] - [id number] Implanted:Qty: 1 on 01/12/2022 by Esvin Diaz M.D. at [facility] Ocular Lens Left: Eye [employer] (Previously KAREN) 10/07/2024 [id number] / [id number] / . Procedures Procedure Name Priority Date/Time Associated Diagnosis Comments ECG AMBULATORY REAL TIME CARDIAC MONITORING Routine 01/06/2025 9:23 AM CDT Dizziness And Giddiness Other General Symptoms And Signs ECG HEART RHYTHM MONITOR (HOLTER) Routine 01/02/2025 10:48 AM CDT Spells Undifferentiated THYROID-STIMULATING IMMUNOGLOBULIN (TSI), S Routine 12/11/2024 11:57 AM CDT Eyelid Retraction Left Upper Eyelid THYROTROPIN RECEPTOR AB, S Routine 12/11/2024 11:57 AM CDT Eyelid Retraction Left Upper Eyelid OPHTHALMOLOGY IMAGE EXAM Routine 12/11/2024 12:00 AM CDT DX CHEST AP OR PA AND LATERAL 2 VIEWS RAD - Routine (most inpatients and all outpatients) 10/18/2024 11:28 AM CDT Chronic Cough BASIC METABOLIC PANEL, S/P Routine 08/20/2024 9:13 AM CDT Hypercalcemia Hypertensive Chronic Kidney Disease With Stage 1 Through Stage 4 Chronic Kidney Disease, Or Unspecified Chronic Kidney Disease COLONOSCOPY Routine 07/18/2012 1:58 PM CDT from Last 3 Months or Most Recently Relevant to Health Maintenance Results * ECG Heart rhythm monitor (Holter) [...] Duration 0 duration INFOBION IC MOME AF [employer] 0 percent INFOBIONIC MOME Symptom Count 0 count INFOBI ONIC MOME 01/02/2025 10:4 8 AM CDT Narrative INFOBIONIC MOME - 01/06/2025 7:32 AM CDT [place] 1. The basic rhythm was sinus with [...] 4. No patient triggered events were noted. Director Of Quality Control: JAMES Durán A Holter monitor with cascade [...] Note Juan Luis Jewell M.D. - 01/06/2025 [place] 1. The basic rhythm was sinus with [...] 4. No patient triggered events were noted. Director Of Quality Control: JAMES Durán A Holter monitor with cascade to extended monitoring was ordered for theindication of Undifferentiated syncope/spells. During the Holtermonitoring period, the patient did not report syncope with associatedrhythm abnormality (pause >=3 seconds, bradycardia <=30bpm for at least 30 seconds, sustained VT >=110bpm or SVT>=140bpm for >=30 beats). Therefore, the study was cascaded to extended monitoring. us Radha Ospina M.D. CV [facility] Final Result INFOBIONIC DEVON NA * Thyroid-Stimulating Immunoglobulin (TSI) (12/11/2024 11:57 AM CDT) Thyroid-Stimula ting Immunoglob, S <1.0 <=1.3 TSI index 12/19/2024 6:25 PM CDT [facility] Blood (Blood, Venous) 12/11/2024 11:57 AM CDT 12/12/2024 8:23 AM CDT Result [facility] Elda Hawkins M.D. LAB BLOOD ADD-ON Final Result Performing Organization Address [facility] Co de Phone Number [facility] [address] [place] [address] [facility] [address] [place] [address] [place] [address] * Thyrotropin Receptor Antibody (12/11/2024 11:57 AM CDT) Thyrotropin Receptor Ab, S <1.10 0.00 - 1.75 IU/L 12/11/2024 7:13 PM CDT [facility] Comment: ----ADDITIONAL INFORMATION---- At a decision [...] 11:57 AM CDT 12/11/2024 6:28 PM CDT Result [facility] Elda Hawkins M.D. LAB BLOOD ADD-ON Final Result Performing Organization Address [facility] de Phone Number [facility] [address] [place] [address] [facility] [address] [place] [address] * Eyes External-Ophthalmology Image Exam (12/11/2024 12:00 AM CDT) Narrative [facility] - 12/11/2024 5:35 PM CDT This order has been created and auto-finalized to support the import of images acquired without order. The clinical documentation to support these images can be found on the encounter that produced images. Provider Not In System IMG NON RAD IMAGING PROCE DURES Final Result [facility] NA * DX Chest AP or PA and Lateral 2 Views (10/18/2024 11:28 AM CDT) Anatomical Region Laterality Modality Chest, Thoracic RST LOS, Tho racic ARZ LOS, Thoracic FLA LOS N/A Digital Radiography Impressions 10/18/2024 11:50 AM CDT No focal consolidation, pleural effusion or pneumothorax. Thoracic aortic calcifications indicating atherosclerosis. Stable cardiomediastinal silhouette. Narrative 10/18/2024 11:50 AM CDT EXAM: DX CHEST AP OR PA AND LATERAL 2 VIEWS Procedure Note Antelmo Guevara M.D. - 10/18/2024 EXAM: DX CHEST AP OR PA AND LATERAL 2 VIEWS IMPRESSION: No focal consolidation, pleural effusion or pneumothorax. Thoracic aorticcalcifications indicating atherosclerosis. Stable cardiomediastinalsilhouette. Radha Ospina M.D. [facility] [place] OCEDURES Final Result * (ABNORMAL) Basic Metabolic Panel (08/20/2024 9:13 AM CDT) Potassium, P 4.5 3.6 - 5.2 mmol/L 08/20/2024 9:39 AM CDT [facility] Sodium, P 142 135 - 145 mmol/L 08/20/2024 9:39 AM CDT [facility] Chloride, P 103 98 - 107 mmol/L 08/20/2024 9:39 AM CDT [facility] Bicarbonate, P 29 22 - 29 mmol/L 08/20/2024 9:39 AM CDT [facility] Anion Gap, P 10 7 - 15 08/20/2024 9:39 AM CDT [facility] BUN (Blood Urea Nitrogen), P 20 6 - 21 mg/dL 08/20/2024 9:39 AM CDT [facility] Creatinine 0.99 0.59 - 1.04 mg/dL 08/20/2024 9:39 AM CDT [facility] Estimated GFR (eGFR) 57(L) >=60 mL/min/BSA 08/20/2024 9:39 AM CDT [facility] Comment: Estimated GFR calculated using the 2020 CKD_EPI creatinine equation. Calcium, Total, P 9.9 8.8 - 10.2 mg/dL 08/20/2024 9:39 AM CDT [facility] Glucose, P CANCELED mg/dL 08/20/2024 9:19 AM CDT [facility] Comment: Duplicate test request. Result canceled by the ancillary. Blood (Blood, Peripheral Draw) 08/20/2024 9:13 AM CDT 08/20/2024 9:19 AM CDT us Radha Ospina M.D. LAB BLOOD ADD-ON Final Re sult [facility] [address] [place] [id number], [facility] CNFL [facility] in [address] [address] * Colonoscopy (07/18/2012 1:58 PM CDT) Anatomical Region Laterality Modality Other 07/18/2012 1:58 PM CDT us Radha Ospina M.D. 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 [address] [place] [phone] PCP - General Family Medicine 11/26/07
--- OUTSIDE RECORDS SUMMARY | 2025-01-17 12:09 | XMS_ITS | Encounter Summary ---
Author Organization [facility] Address [address] [place] [address] Care Team Providers Care Vapor Coater Name Role Phone Radha Ospina M.D. Primary Care Provider [phone] Encounter Details Date Type Department Care Team (Late st Contact Info) Description 12/20/2005 Historical Ophthalmology [facility] Hedy Gallardo M.D. [address] [place] [phone] Social History Tobacco Use Types Packs/Day Years Used Date Smoking Tobacco: Never Assessed Comments Unknown Sex and Gender Information Value Date Recorded Sex Assigned at Female 11/03/2021 11:16 AM CDT Legal Sex Female 11:50 PM PRACTICE NURSE Gender Identity Female 04/25/2020 8:38 AM PRACTICE NURSE Sexual Orientation Straight 04/25/2020 8: 38 AM PRACTICE NURSE documented as of this encounter Progress Notes * Hedy Gallardo M.D. - 12/20/2005 12:00 AM CDT Eye General CHIEF COMPLAINT Painful and red left eye HISTORY OF PRESENT ILLNESS Patient states left eye has been red and painful for 2 days. Left eye has been watery. Pain 5/10. Light sensitive. Blurred vision left eye. ASK: [place] like she had something in her left eye. Left eye hurts to touch. Left eye has been tearing for the past 2 days. No cold sores. No contact lens wear. IMPRESSION / REPORT / PLAN #1 Corneal abrasion, healing, left eye Recommended erythromycin ángel tid and Chong 128 ángel qhs. Follow-up on 12/23/05 at 7am. Instructed patient to call for worsening pain, redness, or change in vision. Will perform dilated eye exam on future visit. DIAGNOSIS #1 Corneal abrasion, healing, left eye CDM Reports - EYEGEN Id: [id number] Status: Fnl documented in this encounter Plan of Treatment Not on file documented as of this encounter Visit Diagnoses Not on filedocumented in this encounter Care Teams Vapor Coater Relationship Specialty Start Date End Date Radha Ospina M.D. [address] [place] [phone] PCP - General Family Medicine 11/26/07 documented as of this encounter
--- OUTSIDE RECORDS SUMMARY | 2025-01-17 12:09 | XMS_ITS | Encounter Summary ---
Author Organization [facility] Address [address] [place] [address] Care Team Providers Care Website Programmer Name Role Phone Radha Ospina M.D. Primary Care Provider +1 [phone] Encounter Details Date Type Department Care Team (Late st Contact Info) Description 09/07/2012 Historical Ophthalmology RST OPH Pete Saul M.D. [address] [place] [phone] Social History Tobacco Use Types Packs/Day Years Used Date Smoking Tobacco: Never Assessed Comments Unknown Sex and Gender Information Value Date Recorded Sex Assigned at Female 11/03/2021 11:16 AM CDT Legal Sex Female 11:50 PM DIE FORGER Gender Identity Female 04/25/2020 8:38 AM DIE FORGER Sexual Orientation Straight 04/25/2020 8: 38 AM DIE FORGER documented as of this encounter Progress Notes * Pete Saul M.D. - 09/07/2012 8:24 AM CDT Eye General CHIEF COMPLAINT intermittent vison changes with right eye HISTORY OF PRESENT ILLNESS postoperative day No. 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 Yesterday, her blurry vision slightly improved with initiating HypoTears. However, she continues to have occasional flashing lights and spider webs with just the right eye. Patient states that both eyes field of vision is foggy in the periphery and double way in the periphery. Yesterday she had spiderwebs that came across her vision in the right eye. These spider webs went away, came back, and nownot there. She has had these in the past and was told she had a vitreous detachment. She has a crescent shaped flash in the right eye periphery that comes and goes, this started last evening. She is using eye drops that maybe help some for the blurry vision. SEEN BY DR. SAUL BRIEFLY BEFORE GETTING CALLED TO SURGERY. NO RETINAL DETACHMENT. VITREOUS SEPARATION RIGHT EYE. WENT OVER THE SIGNS OF DETACHMENT. PATIENT KNOWS TO LET NURSING STAFF KNOW IF THINGS CHANGE IN VISION OR INCREASE IN FLOATERS. PATIENT PREFERS TO WAIT AND HAVE THE REST OF HER EXAM AFTERSHE IS OUT OF THE HOSPITAL, OUTPATIENT. IMPRESSION / REPORT / PLAN Consult requested by: Albert Proctor [id number] 09/08 addendum: #1 Posterior vitreous separation RIGHT I was asked to evaluate for possible retinal detachment based on pt's reported symptoms. No retinaldetachment present. Pt was asked to return for complete evaluation regarding her symptoms later in the day, but she prefers to return as outpatient She may follow up in a general ophthalmology clinic. Please reconsult Ophthalmology service with any new changes. I would recommend repeat dilated fundus exam in next 6-8 wks for her PVD. She only needs to see Retina service PRN. DIAGNOSIS #1 Posterior vitreous separation RIGHT CDM Reports - EYEGEN Id: [id number] Status: Fnl documented in this encounter Plan of Treatment Not on file documented as of this encounter Visit Diagnoses Not on filedocumented in this encounter Care Teams Website Programmer Relationship Specialty Start Date End Date Radha Ospina M.D. YOI: [id number] [address] [place] [address] PCP - General Family Medicine 11/26/07 documented as of this encounter
--- OUTSIDE RECORDS SUMMARY | 2025-01-17 12:09 | XMS_ITS | Encounter Summary ---
Author Organization [facility] Address [address] [place] [address] Care Team Providers Care Gun Mechanic Name Role Phone Radha Ospina M.D. Primary Care Provider +1 [phone] Encounter Details Date Type Department Care Team (Late st Contact Info) Description 10/04/2012 Historical Ophthalmology RST OPH Néstor Thompson O.D., Ph.D. Social History Tobacco Use Types Packs/Day Years Used Date Smoking Tobacco: Never Assessed Comments Unknown Sex and Gender Information Value Date Recorded Sex Assigned at Female 11/03/2021 11:16 AM CDT Legal Sex Female 11:50 PM CULINARY DIRECTOR Gender Identity Female 04/25/2020 8:38 AM CULINARY DIRECTOR Sexual Orientation Straight 04/25/2020 8: 38 AM CULINARY DIRECTOR documented as of this encounter Progress Notes * Néstor Thompson O.D., Ph.D. - 10/04/2012 1:12 PM CDT Eye General HISTORY OF PRESENT ILLNESS Has a lot of floaters but none new. Had some blurry vision and dizziness after surgery but that hasimproved now. Notices some blurry vision when changing from reading for a period of time to walkingaround. She feels dizzy when this happens. She was hospitalized a month ago for removal of a right acoustic neuroma. WLB - hx as above IMPRESSION / REPORT / PLAN #1 Refractive error (hyperopic astigmatism, presbyopia). Plan: spectacle prescription #1 given. Just had complete dilated exam 2 weeks ago with no new problems today thus dilated exam not repeated. DIAGNOSIS #1 Refractive error (hyperopic astigmatism, presbyopia). CDM Reports - EYEGEN Id: [id number] Status: Fnl documented in this encounter Plan of Treatment Not on file documented as of this encounter Visit Diagnoses Not on filedocumented in this encounter Care Teams Gun Mechanic Relationship Specialty Start Date End Date Radha Ospina M.D. [address] [place] [phone] PCP - General Family Medicine 11/26/07 documented as of this encounter
--- OUTSIDE RECORDS SUMMARY | 2025-01-17 12:09 | XMS_ITS | Encounter Summary ---
Author Organization [facility] Address [address] [place] [address] Care Team Providers Care Financial Institution Vice President Name Role Phone Radha Ospina M.D. Primary Care Provider +1 [phone] Encounter Details Date Type Department Care Team (Late st Contact Info) Description 06/17/2010 Historical Ophthalmology RST OPH Erinn Roy O.D. [address] [place] [address] Social History Tobacco Use Types Packs/Day Years Used Date Smoking Tobacco: Never Assessed Comments Unknown Sex and Gender Information Value Date Recorded Sex Assigned at Female 11/03/2021 11:16 AM CDT Legal Sex Female 11:50 PM PICKLING DRUM OPERATOR Gender Identity Female 04/25/2020 8:38 AM PICKLING DRUM OPERATOR Sexual Orientation Straight 04/25/2020 8: 38 AM PICKLING DRUM OPERATOR documented as of this encounter Progress Notes * Erinn Roy O.D. - 06/17/2010 12:58 PM CDT Eye General CHIEF COMPLAINT general eye HISTORY OF PRESENT ILLNESS In 2005 she saw her first floaters and black streaks. When she saw the eye doctor at that time theyasked her to return every 1-2 years. She has had no new symptoms/episodes since then and continues to see floaters. Patient denies eye pain, flashing lights, changes in floaters or diplopia. SANJU 5 years IMPRESSION / REPORT / PLAN #1 Refractive error (hyperopic astigmatism, presbyopia). Plan: spectacle prescription (Refraction 1) given. #2 Incipient lens changes, both eyes Plan: discussed. RTC 2 years/prn DIAGNOSIS #1 Refractive error (hyperopic astigmatism, presbyopia). #2 Incipient lens changes, both eyes CDM Reports - EYEGEN Id: [id number] Status: Fnl documented in this encounter Plan of Treatment Not on file documented as of this encounter Visit Diagnoses Not on filedocumented in this encounter Care Teams Financial Institution Vice President Relationship Specialty Start Date End Date Radha Ospina M.D. [address] [place] [phone] PCP - General Family Medicine 11/26/07 documented as of this encounter
--- OUTSIDE RECORDS SUMMARY | 2025-01-17 12:09 | XMS_ITS | Encounter Summary ---
Author Organization [facility] Address [address] [place] [address] Care Team Providers Care Management Analyst Name Role Phone Radha Ospina M.D. Primary Care Provider +1 [phone] Encounter Details Date Type Department Care Team (Late st Contact Info) Description 02/10/2006 Historical Ophthalmology RST OPH Hedy Gallardo M.D. [address] [place] [phone] Social History Tobacco Use Types Packs/Day Years Used Date Smoking Tobacco: Never Assessed Comments Unknown Sex and Gender Information Value Date Recorded Sex Assigned at Female 11/03/2021 11:16 AM CDT Legal Sex Female 11:50 PM VITICULTURIST Gender Identity Female 04/25/2020 8:38 AM VITICULTURIST Sexual Orientation Straight 04/25/2020 8: 38 AM VITICULTURIST documented as of this encounter Progress Notes * Hedy Gallardo M.D. - 02/10/2006 8:27 AM CST Eye General CHIEF COMPLAINT Follow up corneal abrasion left eye HISTORY OF PRESENT ILLNESS Left eye feels much better. Denies flashes. History of floaters left eye. Patient denies ocular pain. Slightly blurred vision both eyes, distance and near. ASK: Left eye is no longer catching. Feels much better. IMPRESSION / REPORT / PLAN #1 Myopia, astigmatism, and presbyopia Gave patient Rx#1. Recommended a dilated eye exam every 1-2 years. DIAGNOSIS #1 Myopia, astigmatism, and presbyopia CDM Reports - EYEGEN Id: [id number] Status: Fnl documented in this encounter Plan of Treatment Not on file documented as of this encounter Visit Diagnoses Not on filedocumented in this encounter Care Teams Management Analyst Relationship Specialty Start Date End Date Radha Ospina M.D. [address] [place] [phone] PCP - General Family Medicine 11/26/07 documented as of this encounter
--- OUTSIDE RECORDS SUMMARY | 2025-01-17 12:09 | XMS_ITS | Encounter Summary ---
Author Organization [facility] Address [address] [place] [address] Care Team Providers Care Able Seaman Name Role Phone Radha Ospina M.D. Primary Care Provider [phone] [phone] Encounter Details Date Type Department Care Team (Late st Contact Info) Description 04/16/2004 Historical Ophthalmology RST OPH Leonor Luke M.D. [address] [facility] [address] [place] [address] Social History Tobacco Use Types Packs/Day Years Used Date Smoking Tobacco: Never Assessed Comments Unknown Sex and Gender Information Value Date Recorded Sex Assigned at Female 11/03/2021 11:16 AM CDT Legal Sex Female 11:50 PM CAVALRY SCOUT Gender Identity Female 04/25/2020 8:38 AM CAVALRY SCOUT Sexual Orientation Straight 04/25/2020 8: 38 AM CAVALRY SCOUT documented as of this encounter Progress Notes * Leonor Luke M.D. - 04/16/2004 12:00 AM CST Eye General CHIEF COMPLAINT RTN left eye PVD HISTORY OF PRESENT ILLNESS Pt. states no new concerns today. Patient denies new floaters, flashes of light, pain, or diplopia. IMPRESSION / REPORT / PLAN #1 Probable posterior vitreous detachment, left eye Recheck today. Again, discussed signs and symptoms of retinal detachment with patient and told her to return if any symptoms or signs occurred. She showed understanding. Not highly myopic and no h/o retinal detachment. Will see patient in as needed. #2 Blepharitis, both eyes Agressive lubrication with art. tears 4-6 times a day in both eyes along with good lid hygiene and warm compresses. DIAGNOSIS #1 Probable posterior vitreous detachment, left eye #2 Blepharitis, both eyes CDM Reports - EYEGEN Id: [id number] Status: Fnl documented in this encounter Plan of Treatment Not on file documented as of this encounter Visit Diagnoses Not on filedocumented in this encounter Care Teams Able Seaman Relationship Specialty Start Date End Date Radha Ospina M.D. [address] [place] [phone] PCP - General Family Medicine 11/26/07 documented as of this encounter
--- OUTSIDE RECORDS SUMMARY | 2025-01-17 12:09 | XMS_ITS | Encounter Summary ---
Author Organization [facility] Address [address] [place] [address] Care Team Providers Care Slitter Cut Off Operator Name Role Phone Radha Ospina M.D. Primary Care Provider +1 [phone] Encounter Details Date Type Department Care Team (Late st Contact Info) Description 12/23/2005 Historical Ophthalmology RST OPH Hedy Gallardo M.D. [address] [place] [phone] Social History Tobacco Use Types Packs/Day Years Used Date Smoking Tobacco: Never Assessed Comments Unknown Sex and Gender Information Value Date Recorded Sex Assigned at Female 11/03/2021 11:16 AM CDT Legal Sex Female 11:50 PM RESIDENTIAL SOLAR SALES CONSULTANT Gender Identity Female 04/25/2020 8:38 AM RESIDENTIAL SOLAR SALES CONSULTANT Sexual Orientation Straight 04/25/2020 8: 38 AM RESIDENTIAL SOLAR SALES CONSULTANT documented as of this encounter Progress Notes * Hedy Gallardo M.D. - 12/23/2005 12:00 AM CDT Eye General CHIEF COMPLAINT follow up; corneal abrasion left eye HISTORY OF PRESENT ILLNESS This is a 65 year old female here today for a follow up visit to evaluate corneal abrasion on the left eye. Patient states that she feels that the left eye is healing. She notes that she does not feel it catching anymore when she blinks or turns her vision from side to side. She also notes that the tearing and redness have both decreased on the left. She believes that her vision has remained stable. Patient denies ocular pain since last visit. States that she is still experiencing light sensitivity and states that when she has to look at light she experiences floaters in the left eye. ASK: Left eye feels better. Eyelid does not feel like it is catching anymore. IMPRESSION / REPORT / PLAN #1 Corneal abrasion, left eye Healed. Continue erythromycin ángel tid and Chong 128 ángel qhs for 3 days then stop erythromycin ángel but continue Chong 128 ángel qhs for 4 weeks. Follow-up in 4-8 weeks with a refraction and a dilated eye exam. Instructed patient to call for worsening pain, redness, or change in vision. DIAGNOSIS #1 Corneal abrasion, left eye CDM Reports - EYEGEN Id: [id number] Status: Fnl documented in this encounter Plan of Treatment Not on file documented as of this encounter Visit Diagnoses Not on filedocumented in this encounter Care Teams Slitter Cut Off Operator Relationship Specialty Start Date End Date Radha Ospina M.D. [address] [place] [phone] PCP - General Family Medicine 11/26/07 documented as of this encounter
--- OUTSIDE RECORDS SUMMARY | 2025-01-17 12:09 | XMS_ITS | Encounter Summary ---
Author Organization [facility] Address [address] [place] [address] Care Team Providers Care Parts Professional Name Role Phone Radha Ospina M.D. Primary Care Provider +1 [phone] Reason for Referral * Cardiovascular-Diagnostic (Routine) - Authorized Specialty Diagnoses / Procedures Referred By Contac t Referred To Contact Diagnoses Spells Undifferentiated Procedures ECG Heart rhythm monitor (Holter) Radha Ospina M.D. [address] [place] [address] Phone: tel: fax: [facility] Region Referral ID Status Reason Start Date Expiration Date V isits Requested Visits Authorized [id number] Authorized 12/25/2024 03/27/2026 1 1 Reason for Visit * Reason Onset Date Comments Order Request 12/25/2024 Encounter Details Date Type Department Care Team (Late st Contact Info) Description 12/25/2024 Clinical Communication Department of Family Medicine, [address] [place] [address] [place] [phone] Radha Ospina M.D. [address] [place] [address] Order Request Social History Tobacco Use Types Packs/Day Years Used Date Smoking Tobacco: Former Cigarettes 2 44.5 0 08/25/1954 - 03/13/2001 Passive Smoke Exposure: Past Smokeless Tobacco: Never Alcohol Use Standard Drinks/Week Comments Yes 5 (1 standard drink = 0.6 oz pur e alcohol) [facility] Utilities Answer Date Recorded In the past 12 months has e [employer], gas, oil, or water [employer] threatened to shut off services in your [...] your living situation today? I have a [address] place to live 12/27/2023 Education Answer Date Recorded What is the highest level of school you have completed or the highest degree you have received? Bachelor's degree (e.g., BA, AB, BS) 01/04/2019 Comments No Sex and Gender Information Value Date Recorded Sex Assigned at Female 11/03/2021 11:16 AM CDT Legal Sex Female 11:50 PM JAVA SECURITY ENGINEER Gender Identity Female 04/25/2020 8:38 AM JAVA SECURITY ENGINEER Sexual Orientation Straight 04/25/2020 8: 38 AM JAVA SECURITY ENGINEER documented as of this encounter Plan of Treatment Not on file documented as of this encounter Results * ECG Heart rhythm [...] Duration 0 duration INFOBION IC MOME AF [place] 0 percent INFOBIONIC MOME Symptom Count 0 count INFOBI ONIC MOME 01/02/2025 10:4 8 AM CDT Narrative INFOBIONIC MOME - 01/06/2025 7:32 AM CDT [place] 1. The basic rhythm was sinus with [...] 4. No patient triggered events were noted. School Guidance Counselor: JAMES Durán A Holter monitor with cascade [...] Note Juan Luis Jewell M.D. - 01/06/2025 [place] 1. The basic rhythm was sinus with [...] 4. No patient triggered events were noted. School Guidance Counselor: JAMES Durán A Holter monitor with cascade to extended monitoring was ordered for theindication of Undifferentiated syncope/spells. During the Holtermonitoring period, the patient did not report syncope with associatedrhythm abnormality (pause >=3 seconds, bradycardia <=30bpm for at least 30 seconds, sustained VT >=110bpm or SVT>=140bpm for >=30 beats). Therefore, the study was cascaded to extended monitoring. Radha Ospina M.D. [facility] Final Result INFOBIONIC MOME NA documented in this encounter Visit Diagnoses Diagnosis Spells Undifferentiated- Primary Spells Undifferentiated documented in this encounter Additional Health Concerns Assessment Noted Time PHQ-9 Depression Total Score: 0 10/17/19 25 1:28 PM CDT documented as of this encounter Care Teams Parts Professional Relationship Specialty Start Date End Date Radha Ospina M.D. [address] [place] [phone] PCP - General Family Medicine 11/26/07 documented as of this encounter
--- OUTSIDE RECORDS SUMMARY | 2025-01-17 12:09 | XMS_ITS | Encounter Summary ---
Author Organization [facility] Address [address] [place] [address] Care Team Providers Care Property Preservation Specialist Name Role Phone Radha Ospina M.D. Primary Care Provider +1 [phone] Encounter Details Date Type Department Care Team (Late st Contact Info) Description 09/24/2012 Historical Ophthalmology RST OPH Ashvin Velasquez M.D. Social History Tobacco Use Types Packs/Day Years Used Date Smoking Tobacco: Never Assessed Comments Unknown Sex and Gender Information Value Date Recorded Sex Assigned at Female 11/03/2021 11:16 AM CDT Legal Sex Female 11:50 PM RENAL DIALYSIS TECHNICIAN Gender Identity Female 04/25/2020 8:38 AM RENAL DIALYSIS TECHNICIAN Sexual Orientation Straight 04/25/2020 8: 38 AM RENAL DIALYSIS TECHNICIAN documented as of this encounter Progress Notes * Ashvin Velasquez M.D. - 09/24/2012 12:57 PM CDT Eye General CHIEF COMPLAINT Floaters both eyes HISTORY OF PRESENT ILLNESS Floaters alone; both eyes; x several years; constantly. Blurred vision; both eyes; x 3 weeks; constantly; symptoms are moderate. HR: Recently had surgery for resection of acoustic neuroma back in August. During that hospitalization, she had new 'cobwebs' in the right eye. Also had difficulty focusing. She was seen by Dr. Mckeon at which time she was noted to have a posterior vitreous separtation, but no retinal detachment. She is here for follow up exam today. Since leaving the hospital, she had 'cobwebs' and flashing lights only one day, but otherwise she has not had any problems with this since discharge. She does have some double vision in her peripheral vision since the surgery but this has been improving. She does describe scintillating zig-zag lines followed by headache occasionally. Improves with tylenol. She does not note any triggers. Has history of PVD approximately 9 years ago. IMPRESSION / REPORT / PLAN #1 Posterior vitreous separation, right eye Symptoms developed 3 weeks ago. No tobacco dust or dot heme. -- Provided reassurance to patient. -- Gave signs/symptoms of retinal detachment and advised to return or call promptly if these develop. #2 Ocular migraine Multiple episodes; identifies aura with examples of zig-zagging lines. Dilated exam within normal limits. -- Provided reassurance to patient. -- Avoid agents that precipitate the symptoms -- Warned patient of signs/symptoms of retinal detachments and advised to return or call promptly for any concerns. #3 Cataracts, both eyes -Vision decrease since 2010. Her glassess are between 3-4 years old. Schedule REFR and page if unable to refract to 20/20 vision OD. -If does not improve with refraction, will do further evaluation for cause of decreased vision. DIAGNOSIS #1 Posterior vitreous separation, right eye #2 Ocular migraine #3 Cataracts, both eyes CD Reports - EYEGEN Id: [id number] Status: Fnl documented in this encounter Plan of Treatment Not on file documented as of this encounter Visit Diagnoses Not on filedocumented in this encounter Care Teams Property Preservation Specialist Relationship Specialty Start Date End Date Radha Ospina M.D. YOI: [id number] [address] [place] [address] PCP - General Family Medicine 11/26/07 documented as of this encounter
--- OUTSIDE RECORDS SUMMARY | 2025-01-17 12:09 | XMS_ITS | Encounter Summary ---
Author Organization [facility] Address [address] [place] [address] Care Team Providers Care Slabber Light Name Role Phone Radha Ospina M.D. Primary Care Provider +1 -[phone] Encounter Details Date Type Department Care Team (Late st Contact Info) Description 12/30/2024 Results Follow-Up Department of Ophthalmology in [place], [place] [address] [place] [phone] Elda Hawkins M.D. [address] [place] [phone] Thyrotropin Receptor Antibody, Thyroid-Stimulating Immunoglobulin (TSI) Social History Tobacco Use Types Packs/Day Years Used Date Smoking Tobacco: Former Cigarettes 2 44.5 0 08/25/1956 - 03/13/2001 Passive Smoke Exposure: Past Smokeless Tobacco: Never Alcohol Use Standard Drinks/Week Comments Yes 5 (1 standard drink = 0.6 oz pur e alcohol) [facility] Utilities Answer Date Recorded In [...] AM CDT Legal Sex Female 11:50 PM MONEY EXAMINER Gender Identity Female 04/25/2020 8:38 AM MONEY EXAMINER Sexual Orientation Straight 04/25/2020 8: 38 AM MONEY EXAMINER documented as of this encounter Plan of Treatment Not on file documented as of this encounter Visit Diagnoses Not on filedocumented in this encounter Additional Health Concerns Assessment Noted Time PHQ-9 Depression Total Score: 0 10/17/19 25 1:28 PM CDT documented as of this encounter Care Teams Slabber Light Relationship Specialty Start Date End Date Radha Ospina M.D. [address] [place] [address] PCP - General Family Medicine 11/26/07 documented as of this encounter
--- OUTSIDE RECORDS SUMMARY | 2025-01-17 12:09 | XMS_ITS | Encounter Summary ---
Author Organization [facility] Address [address] [place] [address] Care Team Providers Care Prisoner Classification Interviewer Name Role Phone Radha Ospina M.D. Primary Care Provider [phone] Encounter Details Date Type Department Care Team (Late st Contact Info) Description 11/24/2003 Historical Ophthalmology RST OPH Leonor Luke M.D. [address] [facility] [address] [place] [address] Social History Tobacco Use Types Packs/Day Years Used Date Smoking Tobacco: Never Assessed Comments Unknown Sex and Gender Information Value Date Recorded Sex Assigned at Female 11/03/2021 11:16 AM CDT Legal Sex Female 11:[address] CREW MEMBER Gender Identity Female 04/25/2020 8:[address] CREW MEMBER Sexual Orientation Straight 04/25/2020 8: [address] CREW MEMBER documented as of this encounter Progress Notes * Leonor Luke M.D. - 11/24/2003 12:00 AM CDT Eye General CHIEF COMPLAINT Left eye black streaks, swirling Monday HISTORY OF PRESENT ILLNESS 63 yo CF here today for new floaters in left eye since Monday. No flashing lights. No pain. No right eye involvement. IMPRESSION / REPORT / PLAN #1 Probable posterior vitreous detachment, left eye Discussed signs and symptoms of retinal detachment with patient and told her to return if any symptoms or signs occurred. She showed understanding. Not highly myopic and no h/o retinal detachment. Will see patient in 1 month for recheck. DIAGNOSIS #1 Probable posterior vitreous detachment, left eye CDM Reports - EYEGEN Id: [id number] Status: Fnl documented in this encounter Plan of Treatment Not on file documented as of this encounter Visit Diagnoses Not on filedocumented in this encounter Care Teams Prisoner Classification Interviewer Relationship Specialty Start Date End Date Radha Ospina M.D. [address] [place] [phone] PCP - General Family Medicine 11/26/07 documented as of this encounter
--- OUTSIDE RECORDS SUMMARY | 2025-01-17 12:09 | XMS_ITS | Encounter Summary ---
Author Organization [facility] Address [address] [place] [address] Care Team Providers Care Departure Clerk Name Role Phone Radha Ospina M.D. Primary Care Provider [phone] Encounter Details Date Type Department Care Team (Late st Contact Info) Description 12/22/2003 Historical Ophthalmology RST OPH Leonor Luke M.D. 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 - 12/22/2003 12:00 AM CDT Eye General CHIEF COMPLAINT one month recheck left eye possible vitreous detachment HISTORY OF PRESENT ILLNESS 63 yo CF here today for recheck of PVD in left eye. No new floaters, flashes of light, or curtain effect. No vision change. Pt. is having excessive tearing in left eye. IMPRESSION / REPORT / PLAN #1 Probable posterior vitreous detachment, left eye Recheck today. Again, discussed signs and symptoms of retinal detachment with patient and told her to return if any symptoms or signs occurred. She showed understanding. Not highly myopic and no h/o retinal detachment. Will see patient in 3 month for recheck. #2 Blepharitis, both eyes Agressive lubrication with art. tears 4-6 times a day in both eyes along with good lid hygiene and warm compresses. DIAGNOSIS #1 Probable posterior vitreous detachment, left eye #2 Blepharitis, both eyes CDM Reports - EYEGEN Id: [id number] Status: Fnl documented in this encounter Plan of Treatment Not on file documented as of this encounter Visit Diagnoses Not on filedocumented in this encounter Care Teams Departure Clerk Relationship Specialty Start Date End Date Radha Ospina M.D. [address] [place] [phone] PCP - General Family Medicine 11/26/07 documented as of this encounter
--- OUTSIDE RECORDS SUMMARY | 2025-01-17 12:09 | XMS_ITS | Encounter Summary ---
Author Organization [facility] Address [address] [place] [address] Care Team Providers Care Sleeping Car Conductor Name Role Phone Radha Ospina M.D. Primary Care Provider [phone] Reason for Visit * Reason Comments Med Refill Encounter Details Date Type Department Care Team (Late st Contact Info) Description 01/08/2025 Refill Department of Family Medicine, [address] [phone] Main Davies M.D. [address] [place] [address] Med Refill Social History Tobacco Use Types Packs/Day Years Used Date Smoking Tobacco: Former Cigarettes 2 44.5 0 08/25/1956 - 03/13/2001 Passive Smoke Exposure: Past Smokeless Tobacco: Never Alcohol Use Standard Drinks/Week Comments Yes 5 (1 standard drink = 0.6 oz pur e alcohol) [facility] Utilities Answer Date Recorded In the [...] your living situation today? I have a [facility] place to live 12/27/2023 Education Answer Date Recorded What is the highest level of school you have completed or the highest degree you have received? 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 [address] [place] [phone] PCP - General Family Medicine 11/26/07 documented as of this encounter
--- NOTE | 2025-01-17 12:43 | ED.GENADULT ---
HPI - General Adult General Date Seen: 01/17/25 Chief complaint: Unspecified Complaint, Adult Stated complaint: weakness flushed feeling Time Seen by Provider: 01/17/25 12:06 History of Present Illness HPI narrative: Patient is a very pleasant 84-year-old woman brought in by EMS after a ?spell? at home. She tells me that she has had 2 episodes 1 2 weeks ago and 1 today, they were not necessarily like but both prompted her to call 911. Today, she says she was just sitting doing a jigsaw puzzle when she suddenly became diaphoretic. She felt weak, and noted some mild tightness or aching in her left chest. After about 5 minutes, she and her decided to call 911 as she felt like something was really wrong. By the time medics got there symptoms had largely resolved. On arrival here she has no symptoms. Two weeks ago, she says she was also at rest when she developed a squeezing sensation in both upper arms as if a blood pressure cuff was being applied. This also lasted about the same amount of time and resolved, she had called 911 that day and they assessed her but symptoms were improved and she elected to not come in. Today, her encouraged her to come in to be evaluated. She notes that she did talk to her primary doctor at [place] after this episode 2 weeks ago, and apparently a Holter was recommended. She did have a 24 hour Holter, they felt they did not get enough information so they recommended a 30 day. However, she develops problems with an allergy to the adhesive and so she had to remove the Holter and was not wearing it today. She has not had a stress test. 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 She has not had any exertional chest pain, diaphoresis, arm tightness or other symptoms. She does not smoke, quit about 25 years ago. She has hypertension high cholesterol both fairly well managed she says. No prior history of coronary artery disease. No diabetes. She gets a little bit of swelling in her legs and takes half of a hydrochlorothiazide pill for that. No change in her level of edema. Related Data Home Medications ?Medication ?Instructions ?Recorded ?Confirmed amlodipine 5 mg tablet 5 mg PO DAILY 11/03/22 10/03/24 hydrochlorothiazide 25 mg tablet 12.5 mg PO QAM 11/03/22 10/03/24 lisinopril 40 mg tablet 40 mg PO DAILY 11/03/22 10/03/24 rosuvastatin 5 mg tablet 5 mg PO DAILY 11/03/22 10/03/24 Previous Rx's ?Medication ?Instructions ?Recorded epinephrine 0.3 mg/0.3 mL 0.3 mg (0.3 mL) IM ONCE #2 ea 11/03/22 injection syringe cetirizine 10 mg tablet (Zyrtec) 10 mg PO QDAY PRN allergy symptoms 10/03/24 #10 tabs triamcinolone acetonide 0.1 % 1 applic topical BID #15 grams 10/03/24 topical cream Allergies Allergy/AdvReac Type Severity Reaction Status Date / Time adhesive Allergy Mild Rash Verified 01/17/25 12:15 bee venom protein (honey bee) Allergy Unknown Verified 01/17/25 12:15 mold Allergy Verified 01/17/25 12:15 Review of Systems Status of ROS: Reports: 10 or more systems reviewed and unremarkable except as noted in History and below Exam Narrative: Exam Narrative: Vital signs reviewed In general, alert, nontoxic elderly woman. She looks comfortable, breathing easily. Head: Normocephalic, atraumatic. Eyes: Sclera clear. Pupils equal and reactive. ENT: Mucous membranes moist. Neck: Supple without adenopathy. Heart: Regular rate and rhythm without murmur. Lungs: Clear. No increased work of breathing, crackles or wheezes. Abdomen: Soft, nontender to palpation. Extremities: Mild edema in both lower extremities, no calf tenderness, no erythema. Neurologic: Alert, conversant. Speech fluent, face symmetric. Moves all extremities equally. Skin: Warm, dry well perfused. Affect: Normal. Const: Vital Signs, click to edit/add: Vital Signs - 24 hr 01/17/25 12:16 01/17/25 12:44 01/17/25 12:45 Temperature 97.9 F Pulse Rate 62 61 Pulse Rate [Pulse Oximeter] 67 Respiratory Rate 20 Blood Pressure Blood Pressure [Ri ght Upper Arm] 159/69 H Pulse Oximetry 97 95 94 Oxygen Delivery Me thod Room Air 01/17/25 13:00 01/17/25 13:03 01/17/25 13:15 Temperature Pulse Rate 60 62 61 Pulse Rate [Pulse Oximeter] Respiratory Rate 16 Blood Pressure 120/67 Blood Pressure [Ri ght Upper Arm] Pulse Oximetry 95 96 94 Oxygen Delivery Me thod 01/17/25 13:30 01/17/25 13:32 01/17/25 13:47 Temperature Pulse Rate 61 61 Pulse Rate [Pulse Oximeter] Respiratory Rate 54 H 16 19 Blood Pressure 124/76 Blood Pressure [Ri ght Upper Arm] Pulse Oximetry 95 95 Oxygen Delivery Me thod 01/17/25 14:00 01/17/25 14:02 01/17/25 14:15 Temperature Pulse Rate 62 66 67 Pulse Rate [Pulse Oximeter] Respiratory Rate 18 17 20 Blood Pressure 149/75 H Blood Pressure [Ri ght Upper Arm] Pulse Oximetry 96 97 99 Oxygen Delivery Me thod 01/17/25 14:30 01/17/25 14:32 01/17/25 14:45 Temperature Pulse Rate 61 63 64 Pulse Rate [Pulse Oximeter] Respiratory Rate 12 26 H 7 L Blood Pressure 150/77 H Blood Pressure [Ri ght Upper Arm] Pulse Oximetry 95 95 96 Oxygen Delivery Me thod 01/17/25 15:00 01/17/25 15:02 01/17/25 15:03 Temperature Pulse Rate 67 64 62 Pulse Rate [Pulse Oximeter] Respiratory Rate 30 H 17 15 Blood Pressure 143/74 H Blood Pressure [Ri ght Upper Arm] Pulse Oximetry 97 97 94 Oxygen Delivery Me thod 01/17/25 15:15 01/17/25 15:30 Temperature Pulse Rate 71 Pulse Rate [Pulse Oximeter] Respiratory Rate 21 Blood Pressure Blood Pressure [Ri ght Upper Arm] Pulse Oximetry 98 Oxygen Delivery Me thod Course Course ED Course: On arrival, patient had an EKG which by my review shows a sinus bradycardia, ventricular rate of 59. No acute ST segment changes, normal indices, and unremarkable T-waves. Will maintain on a environmental monitoring technician and oximetry while here. She has had 2 episodes now in the past 2 weeks of what could be certainly anginal equivalents. Other considerations would be arrhythmia, pulmonary embolism, acute coronary syndrome, vasovagal spell, among others. Patient continued to feel well while here. Her labs are reassuring including an initial and 3 hour troponin of 0. D-dimer is normal for age at 0.53. Metabolic panel and CBC are likewise normal. I did try to talk with Cardiology at [place] as they have started working with her on this; we called 2 times and never received a call back. Patient was tired of waiting which I certainly understand. Will set her up for a stress test through our system. Reviewed that if she has any severe persistent symptoms in the meantime she needs to come back. Results to Dr. Ospina at [facility]. Vital Signs Vital signs: Initial Vital Signs Temperature 97.9 F 01/17/25 12:16 Temperature Source Temporal Artery Scan 01/17/25 12:16 Pulse Rate 67 01/17/25 12:16 Respiratory Rate 20 01/17/25 12:16 Blood Pressure 159/69 H 01/17/25 12:16 Blood Pressure Mean 99 01/17/25 12:16 Blood Pressure Position Sitting 01/17/25 12:16 Pulse Oximetry 97 01/17/25 12:16 Oxygen Delivery Method Room Air 01/17/25 12:16 Vital Signs Temperature 97.9 F 01/17/25 12:16 Pulse Rate 67 01/17/25 12:16 Respiratory Rate 20 01/17/25 12:16 Blood Pressure 159/69 H 01/17/25 12:16 Pulse Oximetry 97 01/17/25 12:16 Oxygen Delivery Method Room Air 01/17/25 12:16 Temperature 97.9 F 01/17/25 12:16 Pulse Rate 71 01/17/25 15:15 Respiratory Rate 21 01/17/25 15:30 Blood Pressure 143/74 H 01/17/25 15:02 Pulse Oximetry 98 01/17/25 15:15 Oxygen Delivery Method Room Air 01/17/25 12:16 Medications Administered Medications: Discontinued Medications Generic Name Dose Route Start Last Admin Trade Name Freq PRN Reason Stop Dose Admin Aspirin 324 mg 01/17/25 12:37 01/17/25 13:02 Aspirin 81 Mg Tab.Chew PO 01/17/25 12:38 324 mg ONCE ONE Administration Medical Decision Making Lab Data Labs: Lab Results 01/17/25 01/17/25 01/17/25 Range/Units 12:38 13:08 15:24 WBC 5.03 (4.50-11.00) K/uL RBC 4.46 (4.00-5.20) m/uL Hgb 13.7 (12.0-16.0) gm/dL Hct 41.9 (33.0-51.0) % MCV 94 (80-100) fL MCH 31 (26-34) pg MCHC 33 (32-36) gm/dL RDW Coeff of Alirio 12.6 (11.5-15.5) % Plt Count 205 (140-440) K/uL Neut % (Auto) 65.3 (42.0-72.0) % Lymph % (Auto) 21.9 (20-44) % [place] % (Auto) 7.0 (0.0-11.0) % Eos % (Auto) 5.4 (0.0-7.0) % Baso % (Auto) 0.4 (0.0-3.0) % Neut # (Auto) 3.29 (1.7-7.0) K/uL Lymph # (Auto) 1.10 (0.90-2.90) K/uL [place] # (Auto) 0.40 (0.00-0.90) K/UL Eos # (Auto) 0.27 (0.00-0.50) K/uL Baso # (Auto) 0.02 (0.00-0.30) K/uL Abs Immat Gran (auto) 0.00 (0.00-0.30) K/uL Imm/Tot Granulo (auto) 0.0 % D-Dimer Quant (PE/DVT) 0.53 H (0.00-0.50) ug/ml Sodium 139 (135-149) mmol/L Potassium 4.2 (3.6-5.1) mmol/L Chloride 97 (96-114) mmol/L Carbon Dioxide 32 (20-32) mmol/L Anion Gap 10 (7-15) mEq/L BUN 27 (7-30) mg/dL Creatinine 1.0 (0.5-1.5) mg/dL Estimated Creat Clear 45.33 Estimated GFR 56 ml/min Glucose 108 (60-115) mg/dL Calcium 9.8 (8.4-10.6) mg/dL POC Troponin I 0.01 0.00 L (0.01-0.04) ng/ml Discharge Plan Discharge Clinical Impression: Chest pain Patient Disposition: Home, Self-Care Condition: Stable Instructions: Chest Pain (DC) Additional Instructions: Your test today are reassuring. I do think you need to have a stress test to make sure that this these symptoms are not related to angina/heart disease. We will set this up for you and send the results to your doctor at [facility]. If at any time in the meantime you experience significant or persistent symptoms, you should come back to the ER right away. Prescriptions: No Action rosuvastatin 5 mg tablet 5 mg PO DAILY amlodipine 5 mg tablet 5 mg PO DAILY hydrochlorothiazide 25 mg tablet 12.5 mg PO QAM lisinopril 40 mg tablet 40 mg PO DAILY epinephrine 0.3 mg/0.3 mL syringe 0.3 mg IM ONCE Qty: 2 1RF Rx Instructions: as a single dose; may repeat once cetirizine [Zyrtec] 10 mg tablet 10 mg PO QDAY PRN (Reason: allergy symptoms) Qty: 10 0RF triamcinolone acetonide 0.1 % cream 1 applic topical BID Qty: 15 0RF Follow Up/Referrals: Provider,Not a Local [Primary Care Provider, Family Practice] Stand Alone Forms: [facility] [employer] Info Instructions
[2025-01-17] MEDS: ASPIRIN 81 MG TAB.CHEW 324 MG PO (13:02)
[2025-01-17 13:28] LABS: Hematocrit* 41.9 % (33.0-51.0); Hemoglobin* 13.7 gm/dL (12.0-16.0); Immature Granulocytes Abs Auto 0.00 K/uL (0.00-0.30); Immature Granulocytes Pct Auto 0.0 %; Lymphocytes Absolute Auto 1.10 K/uL (0.90-2.90); Mean Corpuscular HGB Conc 33 gm/dL (32-36); Mean Corpuscular Hemoglobin 31 pg (26-34); Mean Corpuscular Volume 94 fL (80-100); RDW Coefficient of Variation % 12.6 % (11.5-15.5); Red Blood Count* 4.46 m/uL (4.00-5.20); White Blood Count* 5.03 K/uL (4.50-11.00)
[2025-01-17 13:40] LABS: Slide Review Reflex No
[2025-01-17 13:44] LABS: D Dimer Quantitative* 0.53 ug/ml (0.00-0.50)
[2025-01-17 13:49] LABS: Chloride* 97 mmol/L (96-114)
[2025-01-17 13:50] LABS: Potassium* 4.2 mmol/L (3.6-5.1); Sodium* 139 mmol/L (135-149)
[2025-01-17 13:52] LABS: Blood Urea Nitrogen* 27 mg/dL (7-30); Creatinine* 1.0 mg/dL (0.5-1.5); Est. Creatinine Clearance* 45.33; Estimated Glomerular Filt Rate 56 ml/min
[2025-01-17 13:53] LABS: Anion Gap 10 mEq/L (7-15); Calcium* 9.8 mg/dL (8.4-10.6); Carbon Dioxide* 32 mmol/L (20-32); Glucose* 108 mg/dL (60-115)
[2025-01-17 13:53] LABS: Troponin, Point-of-Care* 0.01 ng/ml (0.01-0.04)
[2025-01-17 15:44] LABS: Troponin, Point-of-Care* 0.00 ng/ml (0.01-0.04)
== END 2025-01-17 15:57 | disposition home or self-care (01) ==
PROVIDERS: Emergency Provider Emergency Medicine
DX: R07.89 Other chest pain (principal)
CPT/HCPCS: 36415; 80048; 84484; 85025; 85379; 93005; 94761; 99284; A9270

== ENCOUNTER 2025-01-21 07:35 | Outpatient (CLI) | payer MEDICARE, SELFPAY ==
[2025-01-21] MEDS: REGADENOSON 0.4 MG/5 ML SYRINGE IVP (09:26)
[2025-01-21] MEDS: SODIUM CHLORIDE 0.9 % (FLUSH) 10 ML SYRINGE IVF (09:27)
[2025-01-21 09:46] VITALS: BP 124/65; PULSE 80; RESP 16
--- NOTE | 2025-01-21 14:06 | W.PM.STED ---
Stress Test Note Date Date Seen: 01/21/25 Date of test: 01/21/25 Providers Primary care provider: Not a Local Provider Stress test physician: Satnam Sanders Stress Test Note Stress test ordered: Lexiscan Indication for test: Chest pain Stress test medicine: Lexiscan Results discussion: This pleasant lady presents for the above test, after discussion the risks benefits and side effects of this test, she would like to proceed. Cardiac stress test medical history form is reviewed. Pretest EKG shows normal sinus rhythm, with a ventricular rate of 64 and a blood pressure 156/78. No acute ST wave changes are noted. Standard infusion of Lexiscan done over 5 minute. Walking is done. Maximum heart rate was 112 which is 95% of the maximum, her maximum blood pressure was 158/70. During this test she had no chest pain no shortness of breath, there is no ST wave changes suggestive of ischemia there is no dysrhythmias. Impression: Negative electrographic portion of Lexiscan, negative subjective portion. Follow up suggested: Await nuclear medicine read, clinical correlation with this will be needed. Patient left this testing facility will, and over to follow-up with stated provider
== END 2025-01-21 10:37 | disposition home or self-care (01) ==
LOC: STRESS 07:37
PROVIDERS: Visit Provider Emergency Medicine
DX: R07.9 Chest pain, unspecified (principal); I10 Essential (primary) hypertension; E78.00 Pure hypercholesterolemia, unspecified
CPT/HCPCS: 78452; 93016; 93017; A9500; J2785